=== PATIENT | female | born 1945 | race Caucasian/White ===

== ENCOUNTER 2016-11-06 10:10 | Emergency (ER) | payer MEDICARE ==
[~2016-11-06] VITALS: Ht 162.6 cm; Wt 91.6 kg
[~2016-11-06 10:10] MED LIST: AMLO5TAB PO; AMLODIPINE5 M1 PO; ASPIRIN81 M3 PO; ATORVASTATIN CA80 MG PO; BENADRYL 25MG C25 MG PO; CARVEDILOL 1212.5 MG PO; CARVEDILOL 25MG25 MG PO; CIPRO 500MG TA500 MG PO; COREG 12.5 MG12.5 MG PO; DILTIAZEM CD 2240 MG PO; DOXAZOSIN MESYLA1 MG NG; FERROUS SULFAT325 M2 PO; FLEXERIL10 MG PO; FUROSEMIDE 40MG40 M1 PO; GLYBURIDE 5MG TA5 MG; GLYBURIDE 5MG TA5 MG PO; HYOSCYAMINE0.125 M1 PO; IBU-8800 MG PO; LEVAQUIN500 MG PO; LEVEMIR100 U/M1 SC; LEVEMIR100 U/M2 SC; LISINOPRIL AND1 TA1 PO; LISINOPRIL/HCTZ1 TA3 PO; LORTAB 5/500 501 TAB PO; LOVASTATIN20 MG PO; MEDROL 4MG TABLE4 MG PO; METFORMIN500 MG PO; METOPROLOL TAR100 MG PO; NAPROSYN500 M1 PO; OMEPRAZOLE20 MG PO; PANCREAZE PO; PANCRELIPASE PO; PHENERGAN 25MG.25 M1 PO; POTASSIUM CHLO10 ME3 PO; POTASSIUM CHLO10 MEQ PO; PREDNISONE50 MG PO; PROVENTIL0.09 MG/A1 IH; SPIRONOLACTONE25 MG PO; TESSALON PERLE100 MG PO; ZANTAC 300300 MG PO; ZESTORETIC 12.51 TA1 PO; ZITHROMAX500 MG PO; ZOFRAN ODT4 MG PO
[2016-11-06] MEDS ORDERED: [UNRECOGNIZED DRUG - OTHER] IJ (10:22)
--- OUTSIDE RECORDS SUMMARY | 2016-11-06 10:32 | External Medical Summary Rpt ---
Author Author , DEAN MORAN Address Unknown Phone [email or web address] Care Team Providers Care Health Policy Nurse Name Role Phone [facility] Un[facility] Unavailable [place], [facility] Unavailable Unavailable [place] Unavailable Unavailable LAB, [facility] IRMA Reed, IRMA Reed Unavailable Unavailable Brianna SOLIS, IRMA, Unavailable Unavailable ADRIEL HERNANDEZ, Unavailable Unavailable [facility] Un[facility], [facility] Unavailable Unavailable HOSPITA, 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, unspecified E11.65 Type 2 10-26-2016 diabetes mellitus with hyperglycem ia E66.9 Obesity, 10-26-2016 unspecified E78.5 Hyperlipide 10-26-2016 kristine, unspecified H91.90 Unspecified 10-26-2016 hearing loss, unspecified ear I10 Essential 10-26-2016 (primary) hypertensio n I26.99 Other 10-26-2016 pulmonary embolism without acute cor pulmonale K21.9 Gastro-esop 10-26-2016 hageal reflux disease without esophagitis K59.00 Constipatio 10-26-2016 n, unspecified R91.8 Other 10-26-2016 nonspecific abnormal finding of lung field Z68.38 Body mass 10-26-2016 index (BMI) 38.0-38.9, adult Z71.3 Dietary 10-26-2016 counseling and surveillanc e 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 Z95.0 Presence of 10-26-2016 cardiac pacemaker 50767 DIAB W/O 04-08-2013 [facility] COMP TYPE I PHYSICIANS [JUV] NOT LA STATED UNCNTRL 27543 DIAB W/O 12-22-2012 [facility] COMP TYPE [facility] II/UNS NOT HOSPITA STATED UNCNTRL 3899 UNSPECIFIED 12-22-2012 [facility] 4019 UNSPECIFIED 12-22-2012 [facility] HYPERT[facility]O [facility] N 25155 UNSPECIFIED 12-22-2012 [facility] ABSCESS OF TOE 6827 CELLULITIS 12-22-2012 [facility] FOOT SERVICES EXCEPT TOES 2724 OTHER AND 09-14-2010 [facility] HYPERLIPIDE KRISTINE 7862 COUGH 06-03-2009 [facility] 84088 OTHER 05-22-2009 [facility] INTESTINE 73173 UNSPECIFIED 05-22-2009 [facility] CONSTIPAT[facility] INC N 62015 ABDOMINAL 05-22-2009 [place] [facility], [facility]PECIFIED [facility]ITE [facility] 51270 DIAB W/O 02-02-2009 [facility] COMP TYPE II/UNS TYPE UNCNTRL 56829 ASTHMA, 11-24-2008 [facility] , UNSPECIFIED STATUS 61947 PAIN IN 11-24-2008 [facility] JOINT, [facility] SHOULDER REGION 7852 UNDIAGNOSED 11-24-2008 [facility] MURMURS 5368 DYSPEPSIA&O 05-26-2008 [facility] SPEC [facility] DISORDERS FUNCTION STOMACH 2859 UNSPECIFIED 12-10-2007 [facility]EMIA [facility] E11.9 TYPE 2 DIABETES MELLITUS WITHOUT COMPLICATIO NS I21.3 ST ELEVATION (STEMI) MYOCARDIAL INFARCTION OF [facility] SITE I44.2 ATRIOVENTRI CULAR BLOCK, COMPLETE J18.1 LOBAR PNEUMONIA, UNSPECIFIED ORGANISM J18.9 PNEUMONIA, UNSPECIFIED ORGANISM J98.01 ACUTE BRONCHOSPAS M R07.9 CHEST PAIN, UNSPECIFIED R60.9 EDEMA, UNSPECIFIED Medications Na ND Rx Da Fi Fi Am Da Di Ph RX Ph St me C No te ll ll ou ys ag ar # ys at rm s nt no ma ic us Or Da si cy ia de te s n re d 51 03 07 6 30 30 RI 87 CO Ac 47 -2 -2 .0 TE 69 OP ti 70 8- 7- 00 48 ER ve 00 20 20 AI 10 11 11 D SHIMON 4 PH HN AR G MA CY 03 93 8 # 03 93 51 03 06 6 30 30 RI 87 CO Ac 47 -2 -3 .0 TE 69 OP ti 70 8- 0- 00 48 ER ve 00 20 20 AI 10 11 11 D SHIMON 4 PH HN AR G MA CY 03 93 8 # 03 93 ME 00 06 06 5 30 30 RI 88 CO Ac TO 37 -3 -3 .0 TE 94 OP ti PA 80 0- 0- 00 32 ER ve OL 04 20 20 AI OL 71 11 11 D SHIMON 0 PH HN TA AR G RT MA RA CY TE 03 10 93 0 8 MG # 03 TA 93 B LO 00 06 06 5 30 30 RI 88 CO Ac VA 37 -3 -3 .0 TE [address] 86 0- 0- 00 33 ER ve AT 52 20 20 AI IN 09 11 11 D SHIMON 1 PH HN 20 AR G MA MG CY TA 03 BL 93 ET 8 # 03 93 ME 65 03 06 6 60 30 RI 87 CO Ac TF 86 -2 -2 .0 TE 69 OP ti OR 20 8- 3- 00 28 ER ve [place] 00 20 20 AI N 80 11 11 D SHIM[facility] HC 1 PH HN L AR G 50 MA 0 CY MG 03 TA 93 BL 8 ET # 03 93 LI 00 05 06 4 30 30 RI 88 CO Ac SI 59 -2 -2 .0 TE 45 OP ti NO 10 4- 3- 00 52 ER ve PA 86 20 20 AI IL 20 11 11 D SHIMON -H [address] AR G Z MA 20 CY -2 5 03 MG 93 8 TA # B 03 93 PA 00 06 06 6. 30 RI 88 CO Ac OV 08 -0 -0 70 TE 61 OP ti EN 51 6- 6- 0 11 ER ve TI 13 20 20 AI L 20 11 11 D SHIMON HF 1 PH HN A AR G 90 MA CY MC G 03 IN 93 ZUÑIGA 8 LE # R 03 93 GL 00 10 06 5 60 30 RI 85 CO Ac YB 09 -0 -0 .0 TE 23 OP ti UR 39 2- 3- 00 91 ER ve ID 36 20 20 AI E 41 10 11 D SHIMON 5 0 PH HN MG AR G MA TA CY BL ET 03 93 8 # 03 93 ON 53 03 06 5 10 30 RI 87 CO Ac ET 88 -2 -0 0. TE 60 OP ti OU 50 2- 3- 00 49 ER ve CH 24 20 20 0 AI 51 11 11 D SHIMON UL 0 PH HN TR AR G A MA TE CY ST 03 ST 93 RI 8 PS # 03 93 LE 00 03 06 6 10 50 RI 87 CO Ac VE 16 -2 -0 .0 TE 69 OP ti [place] 93 8- 3- 00 26 ER ve R 68 20 20 AI 10 71 11 11 D SHIMON 0 2 PH HN UN AR G IT MA S/ CY ML 03 93 AL 8 # 03 93 LO 00 01 06 5 30 30 RI 87 CO Ac VA 37 -0 -0 .0 TE [address] 86 3- 3- 00 49 ER ve AT 52 20 20 AI IN 09 11 11 D SHIMON 1 PH HN 20 AR G MA MG CY TA 03 BL 93 ET 8 # 03 93 ME 00 01 06 5 30 30 RI 87 CO Ac TO 37 -0 -0 .0 TE 75 OP ti PA 80 3- 2- 00 48 ER ve OL 04 20 20 AI OL 71 11 11 D SHIMON 0 PH HN TA AR G RT MA RA CY TE 03 10 93 0 8 MG # 03 TA 93 B 51 03 05 6 30 30 RI 87 CO Ac 47 -2 -2 .0 TE 69 OP ti 70 8- 9- 00 48 ER ve 00 20 20 AI 10 11 11 D SHIMON 4 PH HN AR G MA CY 03 93 8 # 03 93 LI 00 05 05 4 30 30 RI 88 CO Ac SI 59 -2 -2 .0 TE 45 OP ti NO 10 4- 4- 00 52 ER ve PA 86 20 20 AI IL 20 11 11 D SHIMON -H [address] AR G Z MA 20 CY -2 5 03 MG 93 8 TA # B 03 93 NA 00 08 05 3 60 30 RI 84 CO Ac PA 09 -2 -0 .0 TE 71 OP ti OX 30 6- 4- 00 55 ER ve EN 14 20 20 AI 90 10 11 D SHIMON 50 1 PH HN 0 AR G MG MA CY TA BL 03 ET 93 8 # 03 93 ME 00 01 05 5 30 30 RI 87 CO Ac TO 37 -0 -0 .0 TE 75 OP ti PA 80 3- 4- 00 48 ER ve OL 04 20 20 AI OL 71 11 11 D SHIMON 0 PH HN TA AR G RT MA RA CY TE 03 10 93 0 8 MG # 03 TA 93 B LO 00 01 05 5 30 30 RI 87 CO Ac VA 37 -0 -0 .0 TE [address] 86 3- 4- 00 49 ER ve AT 52 20 20 AI IN 09 11 11 D SHIMON 1 PH HN 20 AR G MA MG CY TA 03 BL 93 ET 8 # 03 93 ME 65 03 04 6 60 30 RI 87 CO Ac TF 86 -2 -3 .0 TE 69 OP ti OR 20 8- 0- 00 28 ER ve [place] 00 20 20 AI N 80 11 11 D SHIMON HC 1 PH HN L AR G 50 MA 0 CY MG 03 TA 93 BL 8 ET # 03 93 51 03 04 6 30 30 RI 87 CO Ac 47 -2 -2 .0 TE 69 OP ti 70 8- 8- 00 48 ER ve 00 20 20 AI 10 11 11 D SHIMON 4 PH HN AR G MA CY 03 93 8 # 03 93 GL 00 10 04 5 60 30 RI 85 CO Ac YB 09 -0 -0 .0 TE 23 OP ti UR 39 2- 4- 00 91 ER ve ID 36 20 20 AI E 41 10 11 D SHIMON 5 0 PH HN MG AR G MA TA CY BL ET 03 93 8 # 03 93 LO 00 01 04 5 30 30 RI 87 CO Ac VA 37 -0 -0 .0 TE [address] 86 3- 1- 00 49 ER ve AT 52 20 20 AI IN 09 11 11 D SHIMON 1 PH HN 20 AR G MA MG CY TA 03 BL 93 ET 8 # 03 93 ME 00 01 04 5 30 30 RI 87 CO Ac TO 37 -0 -0 .0 TE 75 OP ti PA 80 3- 1- 00 48 ER ve OL 04 20 20 AI OL 71 11 11 D SHIMON 0 PH HN TA AR G RT MA RA CY TE 03 10 93 0 8 MG # 03 TA 93 B LE 00 03 03 6 10 50 RI 87 CO Ac VE 16 -2 -2 .0 TE 69 OP ti [place] 93 8- 8- 00 26 ER ve R 68 20 20 AI 10 71 11 11 D SHIMON 0 2 PH HN UN AR G IT MA S/ CY ML 03 93 AL 8 # 03 93 ME 65 03 03 6 60 30 RI 87 CO Ac TF 86 -2 -2 .0 TE 69 OP ti OR 20 8- 8- 00 28 ER ve [place] 00 20 20 AI N 80 11 11 D SHIMON HC 1 PH HN L AR G 50 MA 0 CY MG 03 TA 93 BL 8 ET # 03 93 DI 00 03 03 6 30 30 RI 87 CO Ac LT 09 -2 -2 .0 TE 69 OP ti IA 35 8- 8- 00 29 ER ve ZE 11 20 20 AI M 29 11 11 D SHIMON 24 8 PH HN HR AR G MA ER CY 12 03 0 93 MG 8 # CA 03 P 93 51 03 03 6 30 30 RI 87 CO Ac 47 -2 -2 .0 TE 69 OP ti 70 8- 8- 00 48 ER ve 00 20 20 AI 10 11 11 D SHIMON 4 PH HN AR G MA CY 03 93 8 # 03 93 PA 00 03 03 6. 30 RI 87 CO Ac OV 08 -2 -2 70 TE 60 OP ti EN 51 2- 2- 0 15 ER ve TI 13 20 20 AI L 20 11 11 D SHIMON HF 1 PH HN A AR G 90 MA CY MC G 03 IN 93 ZUÑIGA 8 LE # R 03 93 ON 53 03 03 5 10 30 RI 87 CO Ac ET 88 -2 -2 0. TE 60 OP ti OU 50 2- 2- 00 49 ER ve CH 24 20 20 0 AI 51 11 11 D SHIMON UL 0 PH HN TR AR G A MA TE CY ST 03 ST 93 RI 8 PS # 03 93 LE 00 02 02 00 15 75 RI 82 CO Ac VE 16 -1 -2 .0 TE 09 OP ti [place] 96 0- 6- 00 57 ER ve R 43 20 20 AI FL 91 10 10 D SHIMON EX 0 PH HN PE AR G N M 10 #3 0 93 UN 8 IT S/ ML LE 00 09 02 02 30 30 RI 81 CO Ac SC 07 -1 -2 .0 TE 22 OP ti OL 80 1- 6- 00 60 ER ve 23 20 20 AI 40 40 09 10 D SHIMON 5 PH HN MG AR G M CA #3 PS 93 UL 8 E JA 00 11 02 01 30 30 RI 80 CO Ac NU 00 -1 -2 .0 TE 93 OP ti 60 8- 6- 00 03 ER ve A 27 20 20 AI 10 73 09 10 D SHIMON 0 1 PH HN MG AR G M TA #3 BL 93 ET 8 CY 00 02 02 00 15 5 RI 82 SO Ac CL 37 -1 -2 .0 TE 09 KA ti OB 80 0- 6- 00 62 N ve EN 75 20 20 AI BA ZA 10 10 10 D BA PA 1 PH TU IN AR ND E M E 10 #3 O 93 MG 8 TA BL ET 00 02 02 00 12 2 RI 82 SO Ac 40 -1 -2 .0 TE 09 KA ti 60 0- 6- 00 63 N ve 35 20 20 AI BA 70 10 10 D BA 5 PH TU AR ND M E #3 O 93 8 ME 00 10 02 04 30 30 RI 80 CO Ac TO 37 -0 -1 .0 TE 32 OP ti PA 80 7- 1- 00 00 ER ve OL 04 20 20 AI OL 71 09 10 D SHIMON 0 PH HN TA AR G RT M RA #3 TE 93 8 10 0 MG TA B PA 00 02 02 00 6. 30 RI 82 CO Ac OV 08 -0 -1 70 TE 01 OP ti EN 51 4- 1- 0 07 ER ve TI 13 20 20 AI L 20 10 10 D SHIMON HF 1 PH HN A AR G 90 M #3 MC 93 G 8 IN ZUÑIGA LE R HY 00 08 02 05 30 30 RI 79 CO Ac ZA 00 -1 -1 .0 TE 50 OP ti AR 60 0- 1- 00 73 ER ve 74 20 20 AI 10 53 09 10 D SHIMON 0- 1 PH HN 12 AR G .5 M #3 TA 93 BL 8 ET GL 00 08 02 02 60 30 RI 79 CO Ac YB 09 -0 -1 .0 TE 41 OP ti UR 39 3- 1- 00 75 ER ve ID 36 20 20 AI E 41 09 10 D SHIMON 5 0 PH HN MG AR G M TA #3 BL 93 ET 8 PO 62 01 01 00 60 30 RI 81 CO Ac TA 03 -1 -2 .0 TE 69 OP ti SS 70 3- 8- 00 35 ER ve IU 56 20 20 AI M 00 10 10 D SHIMON CL 1 PH HN AR G ER M #3 10 93 8 ME Q CA PS UL E LE 00 09 01 01 30 30 RI 81 CO Ac SC 07 -1 -2 .0 TE 22 OP ti OL 80 1- 8- 00 60 ER ve 23 20 20 AI 40 40 09 10 D SHIMON 5 PH HN MG AR G M CA #3 PS 93 UL 8 E ME 00 10 01 03 30 30 RI 80 CO Ac TO 37 -0 -1 .0 TE 32 OP ti PA 80 7- 4- 00 00 ER ve OL 04 20 20 AI OL 71 09 10 D SHIMON 0 PH HN TA AR G RT M RA #3 TE 93 8 10 0 MG TA B FE 00 10 01 01 30 30 RI 80 CO Ac RR 67 -1 -1 .0 TE 37 OP ti OU 70 2- 4- 00 68 ER ve S 07 20 20 AI ADAMS 00 09 10 D SHIMON LF 1 PH HN AT AR G E M 32 #3 5 93 MG 8 TA BL ET HY 00 08 01 04 30 30 RI 79 CO Ac ZA 00 -1 -1 .0 TE 50 OP ti AR 60 0- 4- 00 73 ER ve 74 20 20 AI 10 53 09 10 D SHIMON 0- 1 PH HN 12 AR G .5 M #3 TA 93 BL 8 ET PA 00 01 12 01 6. 30 RI 76 CO Ac OV 08 -1 -1 70 TE 68 OP ti EN 51 4- 7- 0 05 ER ve TI 13 20 20 AI L 20 09 09 D SHIMON HF 1 PH HN A AR G 90 M #3 MC 93 G 8 IN ZUÑIGA LE R ME 00 12 12 00 60 30 RI 81 CO Ac TF 09 -0 -1 .0 TE 21 OP ti OR 31 8- 7- 00 77 ER ve [place] 04 20 20 AI N 80 09 09 D SHIMON HC 1 PH HN L AR G 50 M 0 #3 MG 93 8 TA BL ET LE 00 09 12 00 30 30 RI 81 CO Ac SC 07 -1 -1 .0 TE 22 OP ti OL 80 1- 7- 00 60 ER ve 23 20 20 AI 40 40 09 09 D SHIMON 5 PH HN MG AR G M CA #3 PS 93 UL 8 E HY 00 08 12 03 30 30 RI 79 CO Ac ZA 00 -1 -1 .0 TE 50 OP ti AR 60 0- 7- 00 73 ER ve 74 20 20 AI 10 53 09 09 D SHIMON 0- 1 PH HN 12 AR G .5 M #3 TA 93 BL 8 ET ME 00 10 12 02 30 30 RI 80 CO Ac TO 37 -0 -1 .0 TE 32 OP ti PA 80 7- 7- 00 00 ER ve OL 04 20 20 AI OL 71 09 09 D SHIMON 0 PH HN TA AR G RT M RA #3 TE 93 8 10 0 MG TA B JA 00 11 12 00 30 30 RI 80 CO Ac NU 00 -1 -0 .0 TE 93 OP ti 60 8- 3- 00 03 ER ve A 27 20 20 AI 10 73 09 09 D SHIMON 0 1 PH HN MG AR G M TA #3 BL 93 ET 8 LE 00 09 11 02 30 30 RI 79 CO Ac SC 07 -1 -1 .0 TE 94 OP ti OL 80 1- 9- 00 65 ER ve 23 20 20 AI 40 40 09 09 D SHIMON 5 PH HN MG AR G M CA #3 PS 93 UL 8 E PO 62 12 11 05 60 30 RI 76 CO Ac TA 03 -1 -1 .0 TE 25 OP ti SS 70 5- 9- 00 46 ER ve IU 56 20 20 AI M 00 08 09 D SHIMON CL 1 PH HN AR G ER M #3 10 93 8 ME Q CA PS UL E ME 00 10 11 01 30 30 RI 80 CO Ac TO 37 -0 -1 .0 TE 32 OP ti PA 80 7- 9- 00 00 ER ve OL 04 20 20 AI OL 71 09 09 D SHIMON 0 PH HN TA AR G RT M RA #3 TE 93 8 10 0 MG TA B ME 00 12 11 06 60 30 RI 76 CO Ac TF 09 -1 -1 .0 TE 25 OP ti OR 31 5- 9- 00 50 ER ve [place] 04 20 20 AI N 80 08 09 D SHIMON HC 1 PH HN L AR G 50 M 0 #3 MG 93 8 TA BL ET HY 00 08 11 02 30 30 RI 79 CO Ac ZA 00 -1 -1 .0 TE 50 OP ti AR 60 0- 9- 00 73 ER ve 74 20 20 AI 10 53 09 09 D SHIMON 0- 1 PH HN 12 AR G .5 M #3 TA 93 BL 8 ET LE 00 09 10 01 30 30 RI 79 CO Ac SC 07 -1 -2 .0 TE 94 OP ti OL 80 1- 2- 00 65 ER ve 23 20 20 AI 40 40 09 09 D SHIMON 5 PH HN MG AR G M CA #3 PS 93 UL 8 E ME 00 10 10 00 30 30 RI 80 CO Ac TO 37 -0 -2 .0 TE 32 OP ti PA 80 7- 2- 00 00 ER ve OL 04 20 20 AI OL 71 09 09 D SHIMON 0 PH HN TA AR G RT M RA #3 TE 93 8 10 0 MG TA B FE 00 10 10 00 30 30 RI 80 CO Ac RR 67 -1 -2 .0 TE 37 OP ti OU 70 2- 2- 00 68 ER ve S 07 20 20 AI ADAMS 00 09 09 D SHIMON LF 1 PH HN AT AR G E M 32 #3 5 93 MG 8 TA BL ET HY 00 08 10 01 30 30 RI 79 CO Ac ZA 00 -1 -2 .0 TE 50 OP ti AR 60 0- 2- 00 73 ER ve 74 20 20 AI 10 53 09 09 D SHIMON 0- 1 PH HN 12 AR G .5 M #3 TA 93 BL 8 ET GL 00 08 10 01 60 30 RI 79 CO Ac YB 09 -0 -2 .0 TE 41 OP ti UR 39 3- 2- 00 75 ER ve ID 36 20 20 AI E 41 09 09 D SHIMON 5 0 PH HN MG AR G M TA #3 BL 93 ET 8 ME 60 10 10 00 60 30 RI 80 CO Ac TF 50 -1 -2 .0 TE 37 OP ti OR 50 2- 2- 00 57 ER ve [place] 19 20 20 AI N 20 09 09 D SHIMON HC 0 PH HN L AR G 1, M 00 #3 0 93 MG 8 TA BL ET PO 62 12 09 04 60 30 RI 76 CO Ac TA 03 -1 -2 .0 TE 25 OP ti SS 70 5- 4- 00 46 ER ve IU 56 20 20 AI M 00 08 09 D SHIMON CL 1 PH HN AR G ER M #3 10 93 8 ME Q CA PS UL E LE 00 09 09 00 30 30 RI 79 CO Ac SC 07 -1 -2 .0 TE 94 OP ti OL 80 1- 4- 00 65 ER ve 23 20 20 AI 40 40 09 09 D SHIMON 5 PH HN MG AR G M CA #3 PS 93 UL 8 E ME 00 04 09 05 30 30 RI 77 CO Ac TO 37 -0 -2 .0 TE 92 OP ti PA 80 9- 4- 00 19 ER ve OL 04 20 20 AI OL 71 09 09 D SHIMON 0 PH HN TA AR G RT M RA #3 TE 93 8 10 0 MG TA B ME 00 12 09 05 60 30 RI 76 CO Ac TF 09 -1 -2 .0 TE 25 OP ti OR 31 5- 4- 00 50 ER ve [place] 04 20 20 AI N 80 08 09 D SHIMON HC 1 PH HN L AR G 50 M 0 #3 MG 93 8 TA BL ET HY 00 08 09 00 30 30 RI 79 CO Ac ZA 00 -1 -2 .0 TE 50 OP ti AR 60 0- 4- 00 73 ER ve 74 20 20 AI 10 53 09 09 D SHIMON 0- 1 PH HN 12 AR G .5 M #3 TA 93 BL 8 ET GL 00 08 08 00 60 30 RI 79 CO Ac YB 09 -0 -2 .0 TE 41 OP ti UR 39 3- 7- 00 75 ER ve ID 36 20 20 AI E 41 09 09 D SHIMON 5 0 PH HN MG AR G M TA #3 BL 93 ET 8 ME 00 04 08 04 30 30 RI 77 CO Ac TO 37 -0 -2 .0 TE 92 OP ti PA 80 9- 7- 00 19 ER ve OL 04 20 20 AI OL 71 09 09 D SHIMON 0 PH HN TA AR G RT M RA #3 TE 93 8 10 0 MG TA B LE 00 02 08 06 30 30 RI 77 CO Ac SC 07 -0 -2 .0 TE 12 OP ti OL 80 2- 7- 00 54 ER ve 23 20 20 AI 40 40 09 09 D SHIMON 5 PH HN MG AR G M CA #3 PS 93 UL 8 E TR 60 04 08 03 15 30 RI 77 CO Ac IA 50 -0 -1 .0 TE 87 OP ti MT 52 6- 3- 00 36 ER ve ER 65 20 20 AI EN 60 09 09 D SHIMON E- 1 PH HN HC AR G TZ M #3 37 93 .5 8 -2 5 MG TB NA 00 08 08 00 60 30 RI 79 CO Ac PA 09 -0 -1 .0 TE 41 OP ti OX 30 3- 3- 00 69 ER ve EN 14 20 20 AI 90 09 09 D SHIMON 50 1 PH HN 0 AR G MG M #3 TA 93 BL 8 ET ME 00 12 08 04 60 30 RI 76 CO Ac TF 09 -1 -1 .0 TE 25 OP ti OR 31 5- 3- 00 50 ER ve [place] 04 20 20 AI N 80 08 09 D SHIMON HC 1 PH HN L AR G 50 M 0 #3 MG 93 8 TA BL ET GL 00 04 08 04 30 30 RI 77 CO Ac YB 09 -0 -1 .0 TE 87 OP ti UR 39 6- 3- 00 12 ER ve ID 36 20 20 AI E 41 09 09 D SHIMON 5 0 PH HN MG AR G M TA #3 BL 93 ET 8 LE 00 02 07 05 30 30 RI 77 CO Ac SC 07 -0 -3 .0 TE 12 OP ti OL 80 2- 0- 00 54 ER ve 23 20 20 AI 40 40 09 09 D SHIMON 5 PH HN MG AR G M CA #3 PS 93 UL 8 E PO 62 12 07 03 60 30 RI 76 CO Ac TA 03 -1 -3 .0 TE 25 OP ti SS 70 5- 0- 00 46 ER ve IU 56 20 20 AI M 00 08 09 D SHIMON CL 1 PH HN AR G ER M #3 10 93 8 ME Q CA PS UL E FE 00 08 07 04 30 30 RI 74 CO Ac RR 67 -1 -3 .0 TE 78 OP ti OU 70 8- 0- 00 12 ER ve S 07 20 20 AI ADAMS 00 08 09 D SHIMON LF 1 PH HN AT AR G E M 32 #3 5 93 MG 8 TA BL ET ME 00 04 07 03 30 30 RI 77 CO Ac TO 37 -0 -3 .0 TE 92 OP ti PA 80 9- 0- 00 19 ER ve OL 04 20 20 AI OL 71 09 09 D SHIMON 0 PH HN TA AR G RT M RA #3 TE 93 8 10 0 MG TA B GL 00 04 07 03 30 30 RI 77 CO Ac YB 09 -0 -1 .0 TE 87 OP ti UR 39 6- 6- 00 12 ER ve ID 36 20 20 AI E 41 09 09 D SHIMON 5 0 PH HN MG AR G M TA #3 BL 93 ET 8 TR 60 04 07 02 15 30 RI 77 CO Ac IA 50 -0 -1 .0 TE 87 OP ti MT 52 6- 6- 00 36 ER ve ER 65 20 20 AI EN 60 09 09 D SHIMON E- 1 PH HN HC AR G TZ M #3 37 93 .5 8 -2 5 MG TB LE 00 02 07 04 30 30 RI 77 CO Ac SC 07 -0 -0 .0 TE 12 OP ti OL 80 2- 2- 00 54 ER ve 23 20 20 AI 40 40 09 09 D SHIMON 5 PH HN MG AR G M CA #3 PS 93 UL 8 E ME 00 04 06 02 30 30 RI 77 CO Ac TO 37 -0 -1 .0 TE 92 OP ti PA 80 9- 8- 00 19 ER ve OL 04 20 20 AI OL 71 09 09 D SHIMON 0 PH HN TA AR G RT M RA #3 TE 93 8 10 0 MG TA B TR 60 04 06 01 15 30 RI 77 CO Ac IA 50 -0 -1 .0 TE 87 OP ti MT 52 6- 8- 00 36 ER ve ER 65 20 20 AI EN 60 09 09 D SHIMON E- 1 PH HN HC AR G TZ M #3 37 93 .5 8 -2 5 MG TB GL 00 04 06 02 30 30 RI 77 CO Ac YB 09 -0 -1 .0 TE 87 OP ti UR 39 6- 8- 00 12 ER ve ID 36 20 20 AI E 41 09 09 D SHIMON 5 0 PH HN MG AR G M TA #3 BL 93 ET 8 00 12 06 03 60 30 RI 76 CO Ac 17 -1 -1 .0 TE 25 OP ti 24 5- 8- 00 50 ER ve 33 20 20 AI 16 08 09 D SHIMON 0 PH HN AR G M #3 93 8 LE 00 02 05 03 30 30 RI 77 CO Ac SC 07 -0 -2 .0 TE 12 OP ti OL 80 2- 1- 00 54 ER ve 23 20 20 AI 40 40 09 09 D SHIMON 5 PH HN MG AR G M CA #3 PS 93 UL 8 E ME 00 04 05 01 30 30 RI 77 CO Ac TO 37 -0 -2 .0 TE 92 OP ti PA 80 9- 1- 00 19 ER ve OL 04 20 20 AI OL 71 09 09 D SHIMON 0 PH HN TA AR G RT M RA #3 TE 93 8 10 0 MG TA B PO 62 12 05 02 60 30 RI 76 CO Ac TA 03 -1 -2 .0 TE 25 OP ti SS 70 5- 1- 00 46 ER ve IU 56 20 20 AI M 00 08 09 D SHIMON CL 1 PH HN AR G ER M #3 10 93 8 ME Q CA PS UL E GL 00 04 05 01 30 30 RI 77 CO Ac YB 09 -0 -2 .0 TE 87 OP ti UR 39 6- 1- 00 12 ER ve ID 36 20 20 AI E 41 09 09 D SHIMON 5 0 PH HN MG AR G M TA #3 BL 93 ET 8 FE 00 08 05 03 30 30 RI 74 CO Ac RR 67 -1 -0 .0 TE 78 OP ti OU 70 8- 7- 00 12 ER ve S 07 20 20 AI ADAMS 00 08 09 D SHIMON LF 1 PH HN AT AR G E M 32 #3 5 93 MG 8 TA BL ET TR 60 04 05 00 15 30 RI 77 CO Ac IA 50 -0 -0 .0 TE 87 OP ti MT 52 6- 7- 00 36 ER ve ER 65 20 20 AI EN 60 09 09 D SHIMON E- 1 PH HN HC AR G TZ M #3 37 93 .5 8 -2 5 MG TB LE 00 02 04 02 30 30 RI 77 CO Ac SC 07 -0 -2 .0 TE 12 OP ti OL 80 2- 3- 00 54 ER ve 23 20 20 AI 40 40 09 09 D SHIMON 5 PH HN MG AR G M CA #3 PS 93 UL 8 E GL 00 04 04 00 30 30 RI 77 CO Ac YB 09 -0 -2 .0 TE 87 OP ti UR 39 6- 3- 00 12 ER ve ID 36 20 20 AI E 41 09 09 D SHIMON 5 0 PH HN MG AR G M TA #3 BL 93 ET 8 NA 00 09 04 01 60 30 RI 75 CO Ac PA 09 -2 -2 .0 TE 18 OP ti OX 30 9- 3- 00 18 ER ve EN 14 20 20 AI 90 08 09 D SHIMON 50 1 PH HN 0 AR G MG M #3 TA 93 BL 8 ET 00 12 04 02 60 30 RI 76 CO Ac 17 -1 -2 .0 TE 25 OP ti 24 5- 3- 00 50 ER ve 33 20 20 AI 16 08 09 D SHIMON 0 PH HN AR G M #3 93 8 ME 00 04 04 00 30 30 RI 77 CO Ac TO 37 -0 -2 .0 TE 92 OP ti PA 80 9- 3- 00 19 ER ve OL 04 20 20 AI OL 71 09 09 D SHIMON 0 PH HN TA AR G RT M RA #3 TE 93 8 10 0 MG TA B TR 60 08 04 06 15 30 RI 74 CO Ac IA 50 -1 -0 .0 TE 58 OP ti MT 52 8- 9- 00 48 ER ve ER 65 20 20 AI EN 60 08 09 D SHIMON E- 1 PH HN HC AR G TZ M #3 37 93 .5 8 -2 5 MG TB GL 00 08 03 06 30 30 RI 74 CO Ac YB 09 -1 -2 .0 TE 78 OP ti UR 39 8- 6- 00 11 ER ve ID 36 20 20 AI E 41 08 09 D SHIMON 5 0 PH HN MG AR G M TA #3 BL 93 ET 8 LE 00 02 03 01 30 30 RI 77 CO Ac SC 07 -0 -2 .0 TE 12 OP ti OL 80 2- 6- 00 54 ER ve 23 20 20 AI 40 40 09 09 D SHIMON 5 PH HN MG AR G M CA #3 PS 93 UL 8 E ME 00 08 03 06 30 30 RI 74 CO Ac TO 37 -1 -2 .0 TE 78 OP ti PA 80 8- 6- 00 13 ER ve OL 04 20 20 AI OL 71 08 09 D SHIMON 0 PH HN TA AR G RT M RA #3 TE 93 8 10 0 MG TA B PO 62 12 03 01 60 30 RI 76 CO Ac TA 03 -1 -2 .0 TE 25 OP ti SS 70 5- 6- 00 46 ER ve IU 56 20 20 AI M 00 08 09 D SHIMON CL 1 PH HN AR G ER M #3 10 93 8 ME Q CA PS UL E FE 00 08 02 02 30 30 RI 74 CO Ac RR 67 -1 -2 .0 TE 78 OP ti OU 70 8- 6- 00 12 ER ve S 07 20 20 AI ADAMS 00 08 09 D SHIMON LF 1 PH HN AT AR G E M 32 #3 5 93 MG 8 TA BL ET TR 60 08 02 05 15 30 RI 74 CO Ac IA 50 -1 -2 .0 TE 58 OP ti MT 52 8- 6- 00 48 ER ve ER 65 20 20 AI EN 60 08 09 D SHIMON E- 1 PH HN HC AR G TZ M #3 37 93 .5 8 -2 5 MG TB ME 00 08 02 05 30 30 RI 74 CO Ac TO 37 -1 -2 .0 TE 78 OP ti PA 80 8- 6- 00 13 ER ve OL 04 20 20 AI OL 71 08 09 D SHIMON 0 PH HN TA AR G RT M RA #3 TE 93 8 10 0 MG TA B LE 00 02 02 00 30 30 RI 77 CO Ac SC 07 -0 -2 .0 TE 12 OP ti OL 80 2- 6- 00 54 ER ve 23 20 20 AI 40 40 09 09 D SHIMON 5 PH HN MG AR G M CA #3 PS 93 UL 8 E GL 00 08 02 05 30 30 RI 74 CO Ac YB 09 -1 -1 .0 TE 78 OP ti UR 39 8- 2- 00 11 ER ve ID 36 20 20 AI E 41 08 09 D SHIMON 5 0 PH HN MG AR G M TA #3 BL 93 ET 8 00 12 02 01 60 30 RI 76 CO Ac 17 -1 -1 .0 TE 25 OP ti 24 5- 2- 00 50 ER ve 33 20 20 AI 16 08 09 D SHIMON 0 PH HN AR G M #3 93 8 CH 00 02 02 00 47 30 RI 76 CO Ac LO 11 -0 -1 3. TE 91 OP ti RH 62 2- 2- 00 00 ER ve EX 00 20 20 0 AI ID 11 09 09 D SHIMON IN 6 PH HN E AR G 0. M 12 #3 % 93 RI 8 NS E TR 60 08 01 04 15 30 RI 74 CO Ac IA 50 -1 -3 .0 TE 58 OP ti MT 52 8- 0- 00 48 ER ve ER 65 20 20 AI EN 60 08 09 D SHIMON E- 1 PH HN HC AR G TZ M #3 37 93 .5 8 -2 5 MG TB PA 00 01 01 00 6. 30 RI 76 CO Ac OV 08 -1 -3 70 TE 68 OP ti EN 51 4- 0- 0 05 ER ve TI 13 20 20 AI L 20 09 09 D SHIMON HF 1 PH HN A AR G 90 M #3 MC 93 G 8 IN ZUÑIGA LE R LE 00 01 01 00 30 30 RI 76 ZUÑIGA Ac SC 07 -1 -3 .0 TE 68 MM ti OL 80 4- 0- 00 04 ON ve 23 20 20 AI D 40 40 09 09 D KA 5 PH TH MG AR AR M IN CA #3 E PS 93 Y UL 8 E ME 00 08 01 04 30 30 RI 74 CO Ac TO 37 -1 -1 .0 TE 78 OP ti PA 80 8- 5- 00 13 ER ve OL 04 20 20 AI OL 71 08 09 D SHIMON 0 PH HN TA AR G RT M RA #3 TE 93 8 10 0 MG TA B GL 00 08 01 04 30 30 RI 74 CO Ac YB 09 -1 -1 .0 TE 78 OP ti UR 39 8- 5- 00 11 ER ve ID 36 20 20 AI E 41 08 09 D SHIMON 5 0 PH HN MG AR G M TA #3 BL 93 ET 8 00 12 01 00 60 30 RI 76 CO Ac 17 -1 -0 .0 TE 25 OP ti 24 5- 1- 00 50 ER ve 33 20 20 AI 16 08 09 D SHIMON 0 PH HN AR G M #3 93 8 PO 62 12 01 00 60 30 RI 76 CO Ac TA 03 -1 -0 .0 TE 25 OP ti SS 70 5- 1- 00 46 ER ve IU 56 20 20 AI M 00 08 09 D SHIMON CL 1 PH HN AR G ER M #3 10 93 8 ME Q CA PS UL E TR 60 08 12 03 15 30 RI 74 CO Ac IA 50 -1 -1 .0 TE 58 OP ti MT 52 8- 8- 00 48 ER ve ER 65 20 20 AI EN 60 08 08 D SHIMON E- 1 PH HN HC AR G TZ M #3 37 93 .5 8 -2 5 MG TB GL 00 08 12 03 30 30 RI 74 CO Ac YB 09 -1 -1 .0 TE 78 OP ti UR 39 8- 8- 00 11 ER ve ID 36 20 20 AI E 41 08 08 D SHIMON 5 0 PH HN MG AR G M TA #3 BL 93 ET 8 ME 00 08 12 03 30 30 RI 74 CO Ac TO 37 -1 -1 .0 TE 78 OP ti PA 80 8- 8- 00 13 ER ve OL 04 20 20 AI OL 71 08 08 D SHIMON 0 PH HN TA AR G RT M RA #3 TE 93 8 10 0 MG TA B FE 00 08 12 01 30 30 RI 74 CO Ac RR 67 -1 -1 .0 TE 78 OP ti OU 70 8- 8- 00 12 ER ve S 07 20 20 AI ADAMS 00 08 08 D SHIMON LF 1 PH HN AT AR G E M 32 #3 5 93 MG 8 TA BL ET LE 00 12 12 04 30 30 RI 71 ZUÑIGA Ac SC 07 -2 -1 .0 TE 15 MM ti OL 80 0- 8- 00 62 ON ve 23 20 20 AI D 40 40 07 08 D KA 5 PH TH MG AR AR M IN CA #3 E PS 93 Y UL 8 E LE 00 12 11 03 30 30 RI 71 ZUÑIGA Ac SC 07 -2 -2 .0 TE 15 MM ti OL 80 0- 0- 00 62 ON ve 23 20 20 AI D 40 40 07 08 D KA 5 PH TH MG AR AR M IN CA #3 E PS 93 Y UL 8 E 58 12 11 05 60 30 RI 71 CO Ac 17 -1 -2 .0 TE 11 OP ti 70 8- 0- 00 11 ER ve 00 20 20 AI 10 07 08 D SHIMON 4 PH HN AR G M #3 93 8 GL 00 08 11 02 30 30 RI 74 CO Ac YB 09 -1 -2 .0 TE 78 OP ti UR 39 8- 0- 00 11 ER ve ID 36 20 20 AI E 41 08 08 D SHIMON 5 0 PH HN MG AR G M TA #3 BL 93 ET 8 TR 60 08 11 02 15 30 RI 74 CO Ac IA 50 -1 -2 .0 TE 58 OP ti MT 52 8- 0- 00 48 ER ve ER 65 20 20 AI EN 60 08 08 D SHIMON E- 1 PH HN HC AR G TZ M #3 37 93 .5 8 -2 5 MG TB ME 00 08 11 02 30 30 RI 74 CO Ac TO 37 -1 -2 .0 TE 78 OP ti PA 80 8- 0- 00 13 ER ve OL 04 20 20 AI OL 71 08 08 D SHIMON 0 PH HN TA AR G RT M RA #3 TE 93 8 10 0 MG TA B ME 00 08 10 01 30 30 RI 74 CO Ac TO 37 -1 -2 .0 TE 78 OP ti PA 80 8- 3- 00 13 ER ve OL 04 20 20 AI OL 71 08 08 D SHIMON 0 PH HN TA AR G RT M RA #3 TE 93 8 10 0 MG TA B GL 00 08 10 01 30 30 RI 74 CO Ac YB 09 -1 -2 .0 TE 78 OP ti UR 39 8- 3- 00 11 ER ve ID 36 20 20 AI E 41 08 08 D SHIMON 5 0 PH HN MG AR G M TA #3 BL 93 ET 8 00 12 10 05 60 30 RI 71 CO Ac 17 -1 -2 .0 TE 11 OP ti 24 8- 3- 00 15 ER ve 33 20 20 AI 16 07 08 D SHIMON 0 PH HN AR G M #3 93 8 TR 60 08 10 01 15 30 RI 74 CO Ac IA 50 -1 -2 .0 TE 58 OP ti MT 52 8- 3- 00 48 ER ve ER 65 20 20 AI EN 60 08 08 D SHIMON E- 1 PH HN HC AR G TZ M #3 37 93 .5 8 -2 5 MG TB LE 00 12 10 02 30 30 RI 71 No Ac SC 07 -2 -2 .0 TE 15 t ti OL 80 0- 3- 00 62 Av ve 23 20 20 AI ai 40 40 07 08 D la 5 PH bl MG AR e M CA #3 PS 93 UL 8 E FE 00 08 10 00 30 30 RI 74 CO Ac RR 67 -1 -0 .0 TE 78 OP ti OU 70 8- 9- 00 12 ER ve S 07 20 20 AI ADAMS 00 08 08 D SHIMON LF 1 PH HN AT AR G E M 32 #3 5 93 MG 8 TA BL ET NA 00 09 10 00 60 30 RI 75 CO Ac PA 09 -2 -0 .0 TE 18 OP ti OX 30 9- 9- 00 18 ER ve EN 14 20 20 AI 90 08 08 D SHIMON 50 1 PH HN 0 AR G MG M #3 TA 93 BL 8 ET 58 12 09 04 60 30 RI 71 CO Ac 17 -1 -2 .0 TE 11 OP ti 70 8- 6- 00 11 ER ve 00 20 20 AI 10 07 08 D SHIMON 4 PH HN AR G M #3 93 8 ME 00 08 09 00 30 30 RI 74 CO Ac TO 37 -1 -2 .0 TE 78 OP ti PA 80 8- 6- 00 13 ER ve OL 04 20 20 AI OL 71 08 08 D SHIMON 0 PH HN TA AR G RT M RA #3 TE 93 8 10 0 MG TA B TR 60 08 09 00 15 30 RI 74 CO Ac IA 50 -1 -2 .0 TE 58 OP ti MT 52 8- 6- 00 48 ER ve ER 65 20 20 AI EN 60 08 08 D SHIMON E- 1 PH HN HC AR G TZ M #3 37 93 .5 8 -2 5 MG TB LE 00 12 09 01 30 30 RI 71 No Ac SC 07 -2 -2 .0 TE 15 t ti OL 80 0- 6- 00 62 Av ve 23 20 20 AI ai 40 40 07 08 D la 5 PH bl MG AR e M CA #3 PS 93 UL 8 E 00 12 09 04 60 30 RI 71 CO Ac 17 -1 -2 .0 TE 11 OP ti 24 8- 6- 00 15 ER ve 33 20 20 AI 16 07 08 D SHIMON 0 PH HN AR G M #3 93 8 GL 00 08 09 00 30 30 RI 74 CO Ac YB 09 -1 -2 .0 TE 78 OP ti UR 39 8- 6- 00 11 ER ve ID 36 20 20 AI E 41 08 08 D SHIMON 5 0 PH HN MG AR G M TA #3 BL 93 ET 8 ME 00 08 08 00 30 30 RI 74 CO Ac TO 37 -1 -2 .0 TE 58 OP ti PA 80 8- 8- 00 43 ER ve OL 04 20 20 AI OL 71 08 08 D SHIMON 0 PH HN TA AR G RT M RA #3 TE 93 8 10 0 MG TA B GL 00 08 08 00 30 30 RI 74 CO Ac YB 09 -1 -2 .0 TE 58 OP ti UR 39 8- 8- 00 38 ER ve ID 36 20 20 AI E 41 08 08 D SHIMON 5 0 PH HN MG AR G M TA #3 BL 93 ET 8 LE 00 12 08 00 30 30 RI 71 No Ac SC 07 -2 -2 .0 TE 15 t ti OL 80 0- 8- 00 62 Av ve 23 20 20 AI ai 40 40 07 08 D la 5 PH bl MG AR e M CA #3 PS 93 UL 8 E FE 00 07 08 01 30 30 RI 74 CO Ac RR 67 -1 -2 .0 TE 11 OP ti OU 70 1- 8- 00 09 ER ve S 07 20 20 AI ADAMS 00 08 08 D SHIMON LF 1 PH HN AT AR G E M 32 #3 5 93 MG 8 TA BL ET TR 60 12 08 06 15 30 RI 71 CO Ac IA 50 -1 -2 .0 TE 11 OP ti MT 52 8- 8- 00 08 ER ve ER 65 20 20 AI EN 60 07 08 D SHIMON E- 1 PH HN HC AR G TZ M #3 37 93 .5 8 -2 5 MG TB PA 00 07 08 02 6. 21 RI 69 CO Ac OV 08 3 -1 70 TE 04 OP ti EN 51 0- 4- 0 06 ER ve TI 13 20 20 AI L 20 07 08 D SHIMON HF 1 PH HN A AR G 90 M #3 MC 93 G 8 IN ZUÑIG[place] LE R LE 00 07 08 00 30 30 RI 74 CO Ac SC 07 -1 -0 .0 TE 18 OP ti OL 80 7- 1- 00 34 ER ve 23 20 20 AI 40 40 08 08 D SHIMON 5 PH HN MG AR G M CA #3 PS 93 UL 8 E 00 12 08 03 60 30 RI 71 CO Ac 17 -1 -0 .0 TE 11 OP ti 24 8- 1- 00 15 ER ve 33 20 20 AI 16 07 08 D SHIMON 0 PH HN AR G M #3 93 8 GL 00 07 08 00 30 30 RI 74 CO Ac YB 09 -1 -0 .0 TE 18 OP ti UR 39 7- 1- 00 33 ER ve ID 36 20 20 AI E 41 08 08 D SHIMON 5 0 PH HN MG AR G M TA #3 BL 93 ET 8 ME 00 07 08 00 30 30 RI 74 CO Ac TO 37 -1 -0 .0 TE 18 OP ti PA 80 7- 1- 00 32 ER ve OL 04 20 20 AI OL 71 08 08 D SHIMON 0 PH HN TA AR G RT M RA #3 TE 93 8 10 0 MG TA B PA 00 07 07 01 6. 21 RI 69 CO Ac OV 3 - 70 TE 04 OP ti EN 51 0- 7- 0 06 ER ve TI 13 20 20 AI L 20 07 08 D SHIMON HF 1 PH HN A AR G 90 M #3 MC 93 G 8 IN ZUÑ[place] LE R TR 60 12 07 05 15 30 RI 71 CO Ac IA 50 -1 -1 .0 TE 11 OP ti MT 52 8- 7- 00 08 ER ve ER 65 20 20 AI EN 60 07 08 D SHIMON E- 1 PH HN HC AR G TZ M #3 37 93 .5 8 -2 5 MG TB FE 00 07 07 00 30 30 RI 74 CO Ac RR 67 -1 -1 .0 TE 11 OP ti OU 70 1- 7- 00 09 ER ve S 07 20 20 AI ADAMS 00 08 08 D SHIMON LF 1 PH HN AT AR G E M 32 #3 5 93 MG 8 TA BL ET FL 00 07 07 00 16 25 RI 74 CO Ac UT 05 -0 -1 .0 TE 02 OP ti IC 43 5- 7- 00 07 ER ve 27 20 20 AI ON 09 08 08 D SHIMON E 9 PH HN PA AR G OP M #3 50 93 8 MC G SP RA Y 58 12 07 03 60 30 RI 71 CO Ac 17 -1 -1 .0 TE 11 OP ti 70 8- 7- 00 11 ER ve 00 20 20 AI 10 07 08 D SHIMON 4 PH HN AR G M #3 93 8 GL 00 12 07 06 30 30 RI 71 CO Ac YB 09 -1 -0 .0 TE 11 OP ti UR 39 8- 3- 00 14 ER ve ID 36 20 20 AI E 41 07 08 D SHIMON 5 0 PH HN MG AR G M TA #3 BL 93 ET 8 ME 00 12 07 06 30 30 RI 71 CO Ac TO 37 -1 -0 .0 TE 11 OP ti PA 80 8- 3- 00 10 ER ve OL 04 20 20 AI OL 71 07 08 D SHIMON 0 PH HN TA AR G RT M RA #3 TE 93 8 10 0 MG TA B LE 00 12 07 05 30 30 RI 71 CO Ac SC 07 -1 -0 .0 TE 60 OP ti OL 80 8- 3- 00 85 ER ve 17 20 20 AI 20 60 07 08 D SHIMON 5 PH HN MG AR G M CA #3 PS 93 UL 8 E TR 60 12 06 04 15 30 RI 71 CO Ac IA 50 -1 -0 .0 TE 11 OP ti MT 52 8- 5- 00 08 ER ve ER 65 20 20 AI EN 60 07 08 D SHIMON E- 1 PH HN HC AR G TZ M #3 37 93 .5 8 -2 5 MG TB FE 00 05 06 00 30 30 RI 73 CO Ac RR 67 -2 -0 .0 TE 48 OP ti OU 70 7- 5- 00 87 ER ve S 07 20 20 AI ADAMS 00 08 08 D SHIMON LF 1 PH HN AT AR G E M 32 #3 5 93 MG 8 TA BL ET 00 12 06 02 60 30 RI 71 No Ac 17 -1 -0 .0 TE 11 t ti 24 8- 5- 00 15 Av ve 33 20 20 AI ai 16 07 08 D la 0 PH bl AR e M #3 93 8 GL 00 12 06 05 30 30 RI 71 No Ac YB 09 -1 -0 .0 TE 11 t ti UR 39 8- 5- 00 14 Av ve ID 36 20 20 AI ai E 41 07 08 D la 5 0 PH bl MG AR e M TA #3 BL 93 ET 8 ME 00 12 05 05 30 30 RI 71 No Ac TO 37 -1 -2 .0 TE 11 t ti PA 80 8- 2- 00 10 Av ve OL 04 20 20 AI ai OL 71 07 08 D la 0 PH bl TA AR e RT M RA #3 TE 93 8 10 0 MG TA B LE 00 12 05 04 30 30 RI 71 No Ac SC 07 -1 -2 .0 TE 60 t ti OL 80 8- 2- 00 85 Av ve 17 20 20 AI ai 20 60 07 08 D la 5 PH bl MG AR e M CA #3 PS 93 UL 8 E TR 60 12 05 03 15 30 RI 71 No Ac IA 50 -1 -0 .0 TE 11 t ti MT 52 8- 8- 00 08 Av ve ER 65 20 20 AI ai EN 60 07 08 D la E- 1 PH bl HC AR e TZ M #3 37 93 .5 8 -2 5 MG TB 58 12 05 02 60 30 RI 71 No Ac 17 -1 -0 .0 TE 11 t ti 70 8- 8- 00 11 Av ve 00 20 20 AI ai 10 07 08 D la 4 PH bl AR e M #3 93 8 LE 00 12 04 03 30 30 RI 71 No Ac SC 07 -1 -2 .0 TE 60 t ti OL 80 8- 4- 00 85 Av ve 17 20 20 AI ai 20 60 07 08 D la 5 PH bl MG AR e M CA #3 PS 93 UL 8 E ME 00 12 04 04 30 30 RI 71 No Ac TO 37 -1 -2 .0 TE 11 t ti PA 80 8- 4- 00 10 Av ve OL 04 20 20 AI ai OL 71 07 08 D la 0 PH bl TA AR e RT M RA #3 TE 93 8 10 0 MG TA B GL 00 12 04 04 30 30 RI 71 No Ac YB 09 -1 -2 .0 TE 11 t ti UR 39 8- 4- 00 14 Av ve ID 36 20 20 AI ai E 41 07 08 D la 5 0 PH bl MG AR e M TA #3 BL 93 ET 8 GL 00 12 04 03 30 30 RI 71 No Ac YB 09 -1 -1 .0 TE 11 t ti UR 39 8- 7- 00 14 Av ve ID 36 20 20 AI ai E 41 07 08 D la 5 0 PH bl MG AR e M TA #3 BL 93 ET 8 ME 00 12 04 03 30 30 RI 71 No Ac TO 37 -1 -1 .0 TE 11 t ti PA 80 8- 7- 00 10 Av ve OL 04 20 20 AI ai OL 71 07 08 D la 0 PH bl TA AR e RT M RA #3 TE 93 8 10 0 MG TA B LE 00 12 04 02 30 30 RI 71 No Ac SC 07 -1 -1 .0 TE 60 t ti OL 80 8- 7- 00 85 Av ve 17 20 20 AI ai 20 60 07 08 D la 5 PH bl MG AR e M CA #3 PS 93 UL 8 E 00 12 04 01 60 30 RI 71 No Ac 17 -1 -1 .0 TE 11 t ti 24 8- 7- 00 15 Av ve 33 20 20 AI ai 16 07 08 D la 0 PH bl AR e M #3 93 8 FE 00 07 04 05 30 30 RI 68 No Ac RR 67 -1 -1 .0 TE 90 t ti OU 70 9- 0- 00 34 Av ve S 07 20 20 AI ai ADAMS 00 07 08 D la LF 1 PH bl AT AR e E M 32 #3 5 93 MG 8 TA BL ET TR 60 12 04 02 15 30 RI 71 No Ac IA 50 -1 -1 .0 TE 11 t ti MT 52 8- 0- 00 08 Av ve ER 65 20 20 AI ai EN 60 07 08 D la E- 1 PH bl HC AR e TZ M #3 37 93 .5 8 -2 5 MG TB GL 00 12 03 02 30 30 RI 71 No Ac YB 09 -1 -2 .0 TE 11 t ti UR 39 8- 6- 00 14 Av ve ID 36 20 20 AI ai E 41 07 08 D la 5 0 PH bl MG AR e M TA #3 BL 93 ET 8 58 12 03 01 60 30 RI 71 No Ac 17 -1 -2 .0 TE 11 t ti 70 8- 6- 00 11 Av ve 00 20 20 AI ai 10 07 08 D la 4 PH bl AR e M #3 93 8 FE 00 07 03 04 30 30 RI 68 No Ac RR 67 -1 -2 .0 TE 90 t ti OU 70 9- 6- 00 34 Av ve S 07 20 20 AI ai ADAMS 00 07 08 D la LF 1 PH bl AT AR e E M 32 #3 5 93 MG 8 TA BL ET TR 60 12 03 01 15 30 RI 71 No Ac IA 50 -1 -2 .0 TE 11 t ti MT 52 8- 6- 00 08 Av ve ER 65 20 20 AI ai EN 60 07 08 D la E- 1 PH bl HC AR e TZ M #3 37 93 .5 8 -2 5 MG TB ME 00 12 03 02 30 30 RI 71 No Ac TO 37 -1 -2 .0 TE 11 t ti PA 80 8- 6- 00 10 Av ve OL 04 20 20 AI ai OL 71 07 08 D la 0 PH bl TA AR e RT M RA #3 TE 93 8 10 0 MG TA B LE 00 12 03 01 30 30 RI 71 No Ac SC 07 -1 -2 .0 TE 60 t ti OL 80 8- 6- 00 85 Av ve 17 20 20 AI ai 20 60 07 08 D la 5 PH bl MG AR e M CA #3 PS 93 UL 8 E GL 00 12 03 01 30 30 RI 71 No Ac YB 09 -1 -2 .0 TE 11 t ti UR 39 8- 5- 00 14 Av ve ID 36 20 20 AI ai E 41 07 08 D la 5 0 PH bl MG AR e M TA #3 BL 93 ET 8 ME 00 12 03 01 30 30 RI 71 No Ac TO 37 -1 -2 .0 TE 11 t ti PA 80 8- 5- 00 10 Av ve OL 04 20 20 AI ai OL 71 07 08 D la 0 PH bl TA AR e RT M RA #3 TE 93 8 10 0 MG TA B LE 00 12 03 00 30 30 RI 71 No Ac SC 07 -1 -2 .0 TE 60 t ti OL 80 8- 5- 00 85 Av ve 17 20 20 AI ai 20 60 07 08 D la 5 PH bl MG AR e M CA #3 PS 93 UL 8 E FE 00 07 03 03 30 30 RI 68 No Ac RR 67 -1 -2 .0 TE 90 t ti OU 70 9- 4- 00 34 Av ve S 07 20 20 AI ai ADAMS 00 07 08 D la LF 1 PH bl AT AR e E M 32 #3 5 93 MG 8 TA BL ET Results Labs Lab Lab Date Result Refere Interp Status Commen Order Detail nces retati t Range on Rheumatoid fact SerPl-aCnc (10-27-2016 14:39) Rheumat < 10 <14 complet oid 017 IU/mL ed fact 14:39 SerPl-a Cnc CRP SerPl-mCnc (10-27-2016 14:39) CRP 1.3 0-0.9 complet SerPl-m 017 mg/dL ed Cnc 14:39 ESR Bld Qn (10-27-2016 14:39) ESR Bld UNDER 0-20 complet Qn 017 INSUFFI ed 14:39 CIENT VOLUME, SPECIME N WAS UNDER FILLED AND TESTING WAS UNABLE TO BE PERFORM ED, RECOLLE CT REQUEST ED. L mm/hr Bacteria Ur Cult (10-17-2016 18:29) Bacteri [id number] complet a XXX 017 9 ed Anaerob 18:29 normal e+Aerob omaira e Cult (findin g) SCT UMXF Mixed urogeni apurva or skin omaira present . Suggest appropr iate recolle ction with timely deliver y to the laborat ory, if clinica lly indicat ed. L Bacteri [id number] complet a XXX 017 10,000- ed Anaerob 18:29 100,000 e+Aerob CFU/ml e Cult L CC XXX NOTAP complet VC-aCnc 017 NOT ed 18:29 APPLICA BLE L CRP SerPl-mCnc (10-17-2016 18:29) CRP 2 0.6 0-0.9 complet SerPl-m 017 mg/dL ed Cnc 18:29 ESR Bld Qn (10-17-2016 18:25) ESR Bld 23 0-20 complet Qn 017 mm/hr ed 18:25 Bacteria XXX Anaerobe+Aerobe Cult (10-17-2016 14:49) Bacteri [id number] complet a XXX 017 06 No ed Anaerob 14:49 growth e+Aerob (qualif e Cult ier value) SCT NGB6 NO GROWTH DAY 5. L TSH SerPl DL<=0.005 mIU/L-aCnc (10-17-2016 14:49) TSH 3.40 0.4-4.2 complet SerPl 017 uIU/mL ed DL<=0.0 14:49 05 mIU/L-a [facility] Procedures Procedure DOS Code Location Performer Comment BASIC 78955 COMBINED COMBINED METABOLIC 3 PHYSICIAN PHYSICIAN PANEL S LA S LA CALCIUM TOTAL CUL BACT 73208 [facility] XCPT 3 N N URINE COMMUNITY [facility]ITY BLOOD/STO HOSPITA HOSPITA OL AEROBIC ISOL CUL BACT 05740 [facility] AEROBIC 3 N N ADDL COMMUNITY COMMUNITY METHS HOSPITA HOSPITA DEFINITIV E EA ISOL RADIOLOGI 15455 [facility] C 3 N N EXAMINATI COMMUNITY [facility] ON FOOT 2 HOSPITA HOSPITA VIEWS SUSCEPTIB 28382 [facility] LTY STDY 3 N N ANTIMICRB [facility] IAL HOSP[facility] HOSPITA MICRO/AGA R DILUTJ INCISION 74162 [facility] & 3 N N DRAINAGE [facility] ABSCESS HOSPITA HOSPITA SIMPLE/SI NGLE GLUC BLD 25935 [facility] GLUC MNTR 3 N N DEV [facility] CLEARED HOSPITA HOSPITA FDA SPEC HOME USE INJECTION J2001 [facility] 3 N N LIDOCAINE [facility] HCL HOSPITA HOSPITA INTRAVENO US INFUS 10 MG COMPREHEN 86181 COMBINED COMBINED SIVE 3 PHYSICIAN PHYSICIAN METABOLIC S LA S LA PANEL HEMOGLOBI 28807 FAMILY FAMILY N 1 CARE CARE GLYCOSYLA ASSOCIATE ASSOCIATE ASHA A1C S S HEMOGLOBI 68559 FAMILY FAMILY N 1 CARE CARE GLYCOSYLA ASSOCIATE ASSOCIATE ASHA A1C S S COMPREHEN 81840 COMBINED COMBINED SIVE 1 PHYSICIAN PHYSICIAN METABOLIC S LA S LA PANEL CULTURE 86185 COMBINED COMBINED BACTERIAL 1 PHYSICIAN PHYSICIAN S LA S LA QUANTTATI VE COLONY COUNT URINE GLUCOSE 63856 Brianna LUNA POST 0 CARE G GLUCOSE ASSOCIATE DOSE S BLOOD 96412 Brianna LUNA COUNT 0 CARE G COMPLETE ASSOCIATE AUTO&AUTO S DIFRNTL WBC BLOOD 35794 [facility] S[facility]OVAL COUNT 0 [facility] COMPLETE INC INC AUTO&AUTO DIFRNTL WBC URNLS DIP 01478 [facility] ANDRESON 0 [facility] STICK/TAB INC INC LET REAGENT AUTO MICROSCOP Y RADEX ABD 97543 MASOOD DILLON COMPL 0 MEDICAL ADRIEL AQT ABD IMAGING W/S/E/D ASSOCIATE VIEWS 1 S VIEW CH COMPREHEN 60615 [facility] S[facility]OVAL SIVE 0 [facility] [place] [address] [facility] SANDOVAL AMYLASE 0 [place] [address] [facility] SANDOVAL LIPASE 0 [facility] INC INC NEEDLE A4215 [facility] 0 [facility]ARMACY PHARMACY ANY SIZE 3938 3938 EACH COMPREHEN 32009 COMBINED COMBINED SIVE 0 PHYSICIAN PHYSICIAN METABOLIC S LAB S LAB PANEL HEMOGLOBI 14568 FAMILY OLMEDOEET, N 0 CARE Gretta PATEL GLYCOSYLA ASSOCI[place] [address] COMBINED COMBINED THYROID 0 PHYSICIAN PHYSICIAN STIMULATI S LAB S LAB NG HORMONE TSH GLUCOSE 70255 FAMILY LAZOT, POST 0 CARE Gretta PATEL GLUCOSE ASSOCIATE DOSE S ALBUMIN 63999 FAMILY CELIS, URINE 0 CARE Gretta PATEL MICROALBU ASSOCIATE MIN S SEMIQUANT ITATIVE CREATININ 03757 FAMILY CELIS, E OTHER 0 CARE Gretta PATEL SOURCE ASSOCIATE S BLOOD 68023 Brianna LUNA COUNT 9 CARE Erlinda COMPLETE ASSOCIATE AUTO&AUTO S DIFRNTL WBC HEMOGLOBI 56985 Brianna LUNA N 9 CARE G GLYCOSYLA ASSOCIATE ASHA A1C S COMPREHEN 33681 COMBINED COMBINED SIVE 9 PHYSICIAN PHYSICIAN METABOLIC S LAB S LAB PANEL NONINVASI 08998 Brianna LUNA VE 9 CARE G EAR/PULSE ASSOCIATE OXIMETRY S SINGLE DETER COLLECTIO 89947 Brianna LUNA N VENOUS 9 CARE G BLOOD ASSOCIATE VENIPUNCT S URE HEMOGLOBI 30401 COMBINED COMBINED N 9 PHYSICIAN PHYSICIAN GLYCOSYLA S LAB S LAB ASHA A1C BASIC 29817 COMBINED COMBINED METABOLIC 9 PHYSICIAN PHYSICIAN PANEL S LAB S LAB CALCIUM TOTAL ALBUMIN 93372 Brianna LUNA URINE 8 CARE G MICROALBU ASSOCIATE MIN S SEMIQUANT ITATIVE CREATININ 01425 Brianna LUNA E OTHER 8 CARE G SOURCE ASSOCIATE S COMPREHEN 82319 COMBINED COMBINED SIVE 8 PHYSICIAN PHYSICIAN METABOLIC S LAB S LAB PANEL HEMOGLOBI 95559 COMBINED COMBINED N 8 PHYSICIAN PHYSICIAN GLYCOSYLA S LAB S LAB ASHA A1C BLOOD 84333 Brianna LUNA COUNT 8 CARE G COMPLETE ASSOCIATE AUTO&AUTO S DIFRNTL WBC Encounters Encounter Start End Date Code Location Performer Type Date [facility] - 3 [facility] N [facility]PATIEN [facility] T [facility] EMERGENCY 42274 [facility] 3 3 N DEPARTMEN COMMUNITY T VISIT HOSPITA HIGH/URGE NT SEVERITY OFFICE 73937 FAMILY IRMA Reed OUTPATIEN 1 1 CARE T VISIT ASSOCIATE 15 S MINUTES OFFICE 07527 FAMILY IRMA Reed OUTPATIEN 1 1 CARE T VISIT ASSOCIATE 15 S MINUTES OFFICE 78913 Brianna LUNA OUTPATIEN 0 0 CARE G T VISIT ASSOCIATE 15 S MINUTES [facility] T EMERGENCY 56825 [facility] DEPART[facility] INC T VISIT LOW/MODER SEVERITY OFFICE 98263 FAMILY RODRIGUEZYOSEF JASSOPATIEN 0 0 CARE R JORGE T VISIT ASSOCIATE 25 S MINUTES OFFICE 49876 FAMILY LAZOAKI LeonardEN 9 9 CARE R JORGE T VISIT ASSOCIATE 25 S MINUTES OFFICE 46916 Brianna LUNA OUTPATIEN 9 9 CARE G T VISIT ASSOCIATE 15 S MINUTES OFFICE 22197 Brianna LUNA OUTPATIEN 9 9 CARE G T VISIT ASSOCIATE 15 S MINUTES OFFICE 17517 Brianna LUNA OUTPATIEN 9 9 CARE G T VISIT ASSOCIATE 25 S MINUTES OFFICE 76778 Brianna LUNA OUTPATIEN 9 9 CARE G T VISIT ASSOCIATE 25 S MINUTES OFFICE 51068 Brianna LUNA OUTPATIEN 9 9 CARE G T VISIT ASSOCIATE 25 S MINUTES OFFICE 50301 Brianna LUNA 9 9 CARE G T VISIT ASSOCIATE 25 S MINUTES OFFICE 44647 Brianna LUNA 8 8 CARE G T VISIT ASSOCIATE 25 S MINUTES OFFICE 70407 Brianna LUNA 8 8 CARE G T VISIT ASSOCIATE 25 S MINUTES
--- OUTSIDE RECORDS SUMMARY | 2016-11-06 10:32 | External Medical Summary Rpt ---
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 Name Role Phone [facility] Un[place] [place] Unavailable Unavailable LAB, [facility] IRMA Reed, IRMA Reed Unavailable Unavailable Brianna SOLIS, IRMA, Unavailable Unavailable ADRIEL HERNANDEZ, Unavailable Unavailable [facility] Un[facility], [facility] Unavailable Unavailable HOSPITA, [facility] Unavailable Unavailable INC, [facility] Unavailable Unavailable SERVICES, [facility] Gretta CELIS, Unavailable Unavailable Gretta CELIS [id number], Unavailable Unavailable [id number] Unavailable Unavailable [id number] [address] [id number], [facility] [id number] [address] [id number] [facility] Unavailable Unavailable [...] Dietary 10-26-2016 counseling and surveillanc e 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 Z95.0 Presence of 10-26-2016 cardiac pacemaker 25939 DIAB W/O 04-08-2013 [facility] COMP TYPE I PHYSICIANS [JUV] NOT LA STATED UNCNTRL 92100 DIAB W/O 12-22-2012 [facility] COMP TYPE COMMUNITY II/UNS NOT HOSPITA STATED UNCNTRL 3899 UNSPECIFIED 12-22-2012 [facility] 4019 UNSPECIFIED 12-22-2012 [facility] ESSENTIAL COMMUNITY HYPERTENSIO HOSPITA N 91297 UNSPECIFIED 12-22-2012 [facility] CELLULITIS [facility] AND [facility] ABSCESS OF TOE 6827 CELLULITIS 12-22-2012 [facility]Y OF FOOT SERVICES EXCEPT TOES 2724 OTHER AND 09-14-2010 [facility] HYPERLIPIDE KRISTINE 7862 COUGH 06-03-2009 [facility] 04780 OTHER 05-22-2009 [facility] OF INC INTESTINE 91911 UNSPECIFIED 05-22-2009 [facility] CONSTIPATIO INC N 78597 ABDOMINAL 05-22-2009 [place] [facility]PEC[facility]IED [facility]ITE [facility] 81875 DIAB W/O 02-02-2009 [facility] COMP TYPE II/UNS TYPE UNCNTRL 27305 ASTHMA, 11-24-2008 [facility] , UNSPECIFIED STATUS 70392 PAIN IN 11-24-2008 [facility] JOINT, [facility] SHOULDER REGION 7852 UNDIAGNOSED 11-24-2008 [facility]ARDI[facility] MURMURS 5368 DYSPEPSIA&O 05-26-2008 [facility] TH[facility] SPEC [facility] DISORDERS FUNCTION STOMACH 2859 UNSPECIFIED 12-10-2007 [facility]EMIA [facility] E11.9 TYPE 2 DIABETES MELLITUS WITHOUT COMPLICATIO NS I21.3 ST ELEVATION (STEMI) MYOCARDIAL INFARCTION OF [facility] SITE I44.2 ATRIOVENTRI CULAR BLOCK, [...] -3 -3 .0 TE 94 OP ti MS 80 0- 0- 00 32 ER ve [...] 20 8- 3- 00 28 ER ve MN 00 20 20 AI N 80 11 11 D SH[facility] HC 1 PH HN L AR G 50 MA 0 CY MG 03 TA 93 BL 8 ET # 03 93 LI 00 05 06 4 30 30 RI 88 CO Ac SI 59 -2 -2 .0 TE 45 OP ti NO 10 4- 3- 00 52 ER ve MS 86 20 20 AI IL 20 11 11 D SHIMON -H [address] AR G Z MA 20 CY -2 5 03 MG 93 8 TA # B 03 93 MS 00 06 06 6. 30 RI 88 [...] -2 -0 .0 TE 69 OP ti MN 93 8- 3- 00 26 ER ve [...] -0 -0 .0 TE 75 OP ti MS 80 3- 2- 00 48 ER ve [...] 10 4- 4- 00 52 ER ve MS 86 20 20 AI IL 20 11 11 D SHIMON -H [address] AR G Z MA 20 CY -2 5 03 MG 93 8 TA # B 03 93 NA 00 08 05 3 60 30 RI 84 CO Ac MS 09 -2 -0 .0 TE 71 OP [...] -0 -0 .0 TE 75 OP ti MS 80 3- 4- 00 48 ER ve [...] 20 8- 0- 00 28 ER ve MN 00 20 20 AI N 80 11 [...] -0 -0 .0 TE 75 OP ti MS 80 3- 1- 00 48 ER ve OL 04 20 20 AI OL 71 11 11 D SHIMON 0 PH HN TA AR G RT MA RA CY TE 03 10 93 0 8 MG # 03 TA 93 B LE 00 03 03 6 10 50 RI 87 CO Ac VE 16 -2 -2 .0 TE 69 OP ti MN 93 8- 8- 00 26 ER ve [...] 20 8- 8- 00 28 ER ve MN 00 20 20 AI N 80 11 [...] CY 03 93 8 # 03 93 MS 00 03 03 6. 30 RI 87 [...] -1 -2 .0 TE 09 OP ti MN 96 0- 6- 00 57 ER ve [...] BA ZA 10 10 10 D BA MS 1 PH TU IN AR ND E [...] -0 -1 .0 TE 32 OP ti MS 80 7- 1- 00 00 ER ve OL 04 20 20 AI OL 71 09 10 D SHIMON 0 PH HN TA AR G RT M RA #3 TE 93 8 10 0 MG TA B MS 00 02 02 00 6. 30 RI [...] -0 -1 .0 TE 32 OP ti MS 80 7- 4- 00 00 ER ve [...] M #3 TA 93 BL 8 ET MS 00 01 12 01 6. 30 RI [...] 31 8- 7- 00 77 ER ve MN 04 20 20 AI N 80 09 [...] -0 -1 .0 TE 32 OP ti MS 80 7- 7- 00 00 ER ve [...] -0 -1 .0 TE 32 OP ti MS 80 7- 9- 00 00 ER ve [...] 31 5- 9- 00 50 ER ve MN 04 20 20 AI N 80 08 [...] -0 -2 .0 TE 32 OP ti MS 80 7- 2- 00 00 ER ve [...] 50 2- 2- 00 57 ER ve MN 19 20 20 AI N 20 09 [...] -0 -2 .0 TE 92 OP ti MS 80 9- 4- 00 19 ER ve [...] 31 5- 4- 00 50 ER ve MN 04 20 20 AI N 80 08 [...] -0 -2 .0 TE 92 OP ti MS 80 9- 7- 00 19 ER ve [...] 00 60 30 RI 79 CO Ac MS 09 -0 -1 .0 TE 41 OP [...] 31 5- 3- 00 50 ER ve MN 04 20 20 AI N 80 08 [...] -0 -3 .0 TE 92 OP ti MS 80 9- 0- 00 19 ER ve [...] -0 -1 .0 TE 92 OP ti MS 80 9- 8- 00 19 ER ve [...] -0 -2 .0 TE 92 OP ti MS 80 9- 1- 00 19 ER ve [...] 01 60 30 RI 75 CO Ac MS 09 -2 -2 .0 TE 18 OP [...] -0 -2 .0 TE 92 OP ti MS 80 9- 3- 00 19 ER ve [...] -1 -2 .0 TE 78 OP ti MS 80 8- 6- 00 13 ER ve [...] -1 -2 .0 TE 78 OP ti MS 80 8- 6- 00 13 ER ve [...] 93 .5 8 -2 5 MG TB MS 00 01 01 00 6. 30 RI [...] -1 -1 .0 TE 78 OP ti MS 80 8- 5- 00 13 ER ve [...] -1 -1 .0 TE 78 OP ti MS 80 8- 8- 00 13 ER ve [...] -1 -2 .0 TE 78 OP ti MS 80 8- 0- 00 13 ER ve OL 04 20 20 AI OL 71 08 08 D SHIMON 0 PH HN TA AR G RT M RA #3 TE 93 8 10 0 MG TA B ME 00 08 10 01 30 30 RI 74 CO Ac TO 37 -1 -2 .0 TE 78 OP ti MS 80 8- 3- 00 13 ER ve [...] 00 60 30 RI 75 CO Ac MS 09 -2 -0 .0 TE 18 OP [...] -1 -2 .0 TE 78 OP ti MS 80 8- 6- 00 13 ER ve [...] -1 -2 .0 TE 58 OP ti MS 80 8- 8- 00 43 ER ve [...] 93 .5 8 -2 5 MG TB MS 00 07 08 02 6. 21 RI [...] -1 -0 .0 TE 18 OP ti MS 80 7- 1- 00 32 ER ve OL 04 20 20 AI OL 71 08 08 D SHIMON 0 PH HN TA AR G RT M RA #3 TE 93 8 10 0 MG TA B MS 00 07 07 01 6. 21 RI [...] 08 D SHIMON E 9 PH HN MS AR G OP M #3 50 93 [...] -1 -0 .0 TE 11 OP ti MS 80 8- 3- 00 10 ER ve [...] -1 -2 .0 TE 11 t ti MS 80 8- 2- 00 10 Av ve [...] -1 -2 .0 TE 11 t ti MS 80 8- 4- 00 10 Av ve [...] -1 -1 .0 TE 11 t ti MS 80 8- 7- 00 10 Av ve [...] -1 -2 .0 TE 11 t ti MS 80 8- 6- 00 10 Av ve [...] -1 -2 .0 TE 11 t ti MS 80 8- 5- 00 10 Av ve [...] mm/hr Bacteria Ur Cult (10-17-2016 18:29) Bacteri [id number] complet a XXX 017 9 ed Anaerob 18:29 normal e+Aerob omaira e Cult (findin g) SCT UMXF Mixed urogeni apurva or skin omaira present . Suggest appropr iate recolle ction with timely deliver y to the laborat ory, if clinica lly indicat ed. L Bacteri [id number] complet a XXX 017 10,000- ed Anaerob 18:29 100,000 e+Aerob CFU/ml e Cult L CC XXX NOTAP complet VC-aCnc 017 NOT ed 18:29 APPLICA BLE L CRP SerPl-mCnc (10-17-2016 18:29) CRP 2 0.6 0-0.9 complet SerPl-m 017 mg/dL ed Cnc 18:29 ESR Bld Qn (10-17-2016 18:25) ESR Bld 23 0-20 complet Qn 017 mm/hr ed 18:25 Bacteria XXX Anaerobe+Aerobe Cult (10-17-2016 14:49) Bacteri [id number] complet a XXX 017 06 No ed Anaerob 14:49 growth e+Aerob (qualif e Cult ier value) SCT NGB6 NO GROWTH DAY 5. L TSH SerPl DL<=0.005 mIU/L-aCnc (10-17-2016 14:49) TSH 3.40 0.4-4.2 complet SerPl 017 uIU/mL ed DL<=0.0 14:49 05 mIU/L-a [facility] Procedures Procedure DOS Code Location Performer Comment BASIC 26651 COMBINED COMBINED METABOLIC 3 PHYSICIAN PHYSICIAN PANEL S LA S LA CALCIUM TOTAL CUL BACT 02085 [facility] XCPT 3 N N URINE COMMUNITY COMMUNITY BLOOD/STO HOSPITA HOSPITA OL AEROBIC ISOL CUL BACT 96353 [facility] AEROBIC 3 N N ADDL COMMUNITY COMMUNITY METHS HOSPITA HOSPITA DEFINITIV E EA ISOL RADIOLOGI 24221 [facility] C 3 N N EXAMINATI COMMUNITY [facility] ON FOOT 2 HOSPITA HOSPITA VIEWS SUSCEPTIB 01019 [facility] LTY STDY 3 N N ANTIMICRB [facility] IAL HOSPITA HOSPITA MICRO/AGA R DILUTJ INCISION 29046 [facility] & 3 N N DRAINAGE [facility] ABSCESS HOSPITA HOSPITA SIMPLE/SI NGLE GLUC BLD 18934 [facility] GLUC MNTR 3 N N DEV [facility] CLEARED HOSPITA HOSPITA FDA SPEC HOME USE INJECTION J2001 [facility] 3 N N LIDOCAINE [facility] HCL HOSPITA HOSPITA INTRAVENO US INFUS 10 MG COMPREHEN 16292 COMBINED COMBINED SIVE 3 PHYSICIAN PHYSICIAN METABOLIC S LA S LA PANEL HEMOGLOBI 96676 FAMILY FAMILY N 1 CARE CARE GLYCOSYLA ASSOCIATE ASSOCIATE ASHA A1C S S HEMOGLOBI 50581 FAMILY FAMILY N 1 CARE CARE GLYCOSYLA ASSOCIATE ASSOCIATE ASHA A1C S S COMPREHEN 75553 COMBINED COMBINED SIVE 1 PHYSICIAN PHYSICIAN METABOLIC S LA S LA PANEL CULTURE 07182 COMBINED COMBINED BACTERIAL 1 PHYSICIAN PHYSICIAN S LA S LA QUANTTATI VE COLONY COUNT URINE GLUCOSE 33847 Brianna LUNA POST 0 CARE G GLUCOSE ASSOCIATE DOSE S BLOOD 59582 Brianna LUNA COUNT 0 CARE G COMPLETE ASSOCIATE AUTO&AUTO S DIFRNTL WBC BLOOD 38686 [facility] 0 [facility] COMPLETE INC INC AUTO&AUTO DIFRNTL WBC URNLS DIP 44372 [facility] ANDRESON [facility] STICK/TAB INC INC LET REAGENT AUTO MICROSCOP Y RADEX ABD 31065 [facility] COMPL 0 MEDICAL ADRIEL AQT ABD IMAGING W/S/E/D ASSOCIATE VIEWS 1 S VIEW CH COMPREHEN 69592 [facility] SIVE 0 [facility] [place] [address] [facility] SANDOVAL AMYLASE 0 [place] [address] [facility] LIPASE 0 [facility] INC INC NEEDLE A4215 [facility] PHARMACY ANY SIZE 3938 3938 EACH COMPREHEN 69214 COMBINED COMBINED SIVE 0 PHYSICIAN PHYSICIAN METABOLIC S LAB S LAB PANEL HEMOGLOBI 43615 FAMILY OLMEDOEET, N 0 CARE Gretta PATEL GLYCOSYLA [place]OCI[place] [address] COMBINED COMBINED THYROID 0 PHYSICIAN PHYSICIAN STIMULATI S LAB S LAB NG HORMONE TSH GLUCOSE 15061 FAMILY LAZOT, POST 0 CARE Gretta PATEL GLUCOSE ASSOCIATE DOSE S ALBUMIN 62559 FAMILY CELIS, URINE 0 CARE Gretta PATEL MICROALBU ASSOCIATE MIN S SEMIQUANT ITATIVE CREATININ 21548 FAMILY CELIS, E OTHER 0 CARE Gretta PATEL SOURCE ASSOCIATE S BLOOD 22011 Brianna LUNA COUNT 9 CARE Erlinda COMPLETE ASSOCIATE AUTO&AUTO S DIFRNTL WBC HEMOGLOBI 70186 Brianna LUNA N 9 CARE G GLYCOSYLA ASSOCIATE ASHA A1C S COMPREHEN 77177 COMBINED COMBINED SIVE 9 PHYSICIAN PHYSICIAN METABOLIC S LAB S LAB PANEL NONINVASI 96112 Brianna LUNA VE 9 CARE G EAR/PULSE ASSOCIATE OXIMETRY S SINGLE DETER COLLECTIO 05196 Brianna LUNA N VENOUS 9 CARE G BLOOD ASSOCIATE VENIPUNCT S URE HEMOGLOBI 49412 COMBINED COMBINED N 9 PHYSICIAN PHYSICIAN GLYCOSYLA S LAB S LAB ASHA A1C BASIC 78476 COMBINED COMBINED METABOLIC 9 PHYSICIAN PHYSICIAN PANEL S LAB S LAB CALCIUM TOTAL ALBUMIN 31097 Brianna LUNA URINE 8 CARE G MICROALBU ASSOCIATE MIN S SEMIQUANT ITATIVE CREATININ 45484 Brianna LUNA E OTHER 8 CARE G SOURCE ASSOCIATE S COMPREHEN 20322 COMBINED COMBINED SIVE 8 PHYSICIAN PHYSICIAN METABOLIC S LAB S LAB PANEL HEMOGLOBI 84987 COMBINED COMBINED N 8 PHYSICIAN PHYSICIAN GLYCOSYLA S LAB S LAB ASHA A1C BLOOD 44837 Brianna LUNA COUNT 8 CARE G COMPLETE ASSOCIATE AUTO&AUTO S DIFRNTL WBC Encounters Encounter Start End Date Code Location Performer Type Date [facility] - 3 3 N OUTPATIEN COMMUNITY T HOSPITA EMERGENCY 45307 [facility] 3 3 N DEPARTMEN COMMUNITY T VISIT HOSPITA HIGH/URGE NT SEVERITY OFFICE 53399 FAMILY IRMA Reed OUTPATIEN 1 1 CARE T VISIT ASSOCIATE 15 S MINUTES OFFICE 92917 FAMILY IRMA Reed OUTPATIEN 1 1 CARE T VISIT ASSOCIATE 15 S MINUTES OFFICE 27209 Brianna LUNA OUTPATIEN 0 0 CARE G T VISIT ASSOCIATE 15 S MINUTES [facility]OSPITAL [facility] T EMERGENCY 24408 [facility] DEPARTMEN INC T VISIT LOW/MODER SEVERITY OFFICE 90053 FAMILY RODRIGUEZYOSEF JASSOPATIEN 0 0 CARE R JORGE T VISIT ASSOCIATE 25 S MINUTES OFFICE 17655 FAMILY LAZOAKI LeonardEN 9 9 CARE R JORGE T VISIT ASSOCIATE 25 S MINUTES OFFICE 00696 Brianna LUNA OUTPATIEN 9 9 CARE G T VISIT ASSOCIATE 15 S MINUTES OFFICE 84043 Brianna LUNA OUTPATIEN 9 9 CARE G T VISIT ASSOCIATE 15 S MINUTES OFFICE 05359 Brianna LUNA OUTPATIEN 9 9 CARE G T VISIT ASSOCIATE 25 S MINUTES OFFICE 99391 Brianna LUNA OUTPATIEN 9 9 CARE G T VISIT ASSOCIATE 25 S MINUTES OFFICE 76643 Brianna LUNA OUTPATIEN 9 9 CARE G T VISIT ASSOCIATE 25 S MINUTES OFFICE 16824 Brianna LUNA 9 9 CARE G T VISIT ASSOCIATE 25 S MINUTES OFFICE 72535 Brianna LUNA 8 8 CARE G T VISIT ASSOCIATE 25 S MINUTES OFFICE 04961 Brianna LUNA 8 8 CARE G T VISIT ASSOCIATE 25 S MINUTES
--- OUTSIDE RECORDS SUMMARY | 2016-11-06 10:38 | External Medical Summary Rpt ---
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 Name Role Phone CELLAROSI - YORBA Unavailable Unavailable PAT, CELLAROSI - YORBA PAT [facility] Un[facility] Unavailable [facility], [facility] Unavailable Unavailable [facility] Unavailable Unavailable LAB, [facility] IRMA Reed, IRMA Reed Unavailable Unavailable Brianna SOLIS, IRMA, Unavailable Unavailable ADRIEL HERNANDEZ, Unavailable Unavailable [facility] Unavailable Unavailable [facility], [facility] Unavailable Unavailable HOSPITA, [facility] Un[facility] Unavailable [facility], [facility] Un[facility] Unavailable SERVICES, [facility] Gretta CELIS, Unavailable Unavailable Gretta CELIS [id number], Unavailable Unavailable [id number] Unavailable Unavailable [id number] # [id number], [facility] [address] # [id number] [facility] Unavailable Unavailable 3938, [facility] 3938 Purpose Continuity of Care Document - 07-16-2007 through 2016 Problems Code Diagnosis DOS Provider Status 85308 DIAB W/O 04-08-2013 [facility] COMP TYPE I PHYSICIANS [JUV] NOT LA STATED UNCNTRL 03885 DIAB W/O 12-22-2012 [facility] COMP TYPE COMMUNITY II/UNS NOT HOSPITA STATED UNCNTRL 3899 UNSPECIFIED 12-22-2012 [facility] 4019 UNSPECIFIED 12-22-2012 [facility] N 84896 UNSPECIFIED 12-22-2012 [facility] ABSCESS OF TOE 6928 CELLULITIS 12-22-2012 [facility] FOOT [facility] EXCEPT TOES 2724 OTHER AND 09-14-2010 [facility] HYPERLIPIDE CHEVY 7862 COUGH 06-03-2009 [facility] 44898 OTHER 05-22-2009 [facility] INTESTINE 68334 UNSPECIFIED 05-22-2009 [facility] N 30732 ABDOMINAL 05-22-2009 [place] [facility], [facility]PEC[facility]ITE [facility] 65473 DIAB W/O 02-02-2009 [facility] COMP TYPE II/UNS TYPE UNCNTRL 07020 ASTHMA, 11-24-2008 [facility] , UNSPECIFIED STATUS 90752 PAIN IN 11-24-2008 [facility]INT[facility] SHOULDER REGION 7852 UNDIAGNOSED 11-24-2008 [facility] MURMURS 5368 DYSPEPSIA&O 05-26-2008 [facility]C [facility] DISORDERS FUNCTION STOMACH 2859 UNSPECIFIED 12-10-2007 [facility] Medications Na ND Rx Da Fi Fi [...] -3 -3 .0 TE 94 OP ti AL 80 0- 0- 00 32 ER ve [...] 10 4- 3- 00 52 ER ve AL 86 20 20 AI IL 20 11 11 D [facility] -H [address] AR G Z MA 20 CY -2 5 03 MG 93 8 TA # B 03 93 AL 00 06 06 6. 30 RI 88 [...] -0 -0 .0 TE 75 OP ti AL 80 3- 2- 00 48 ER ve [...] 10 4- 4- 00 52 ER ve AL 86 20 20 AI IL 20 11 11 D [facility]ON -H [address] AR G Z MA 20 CY -2 5 03 MG 93 8 TA # B 03 93 NA 00 08 05 3 60 30 RI 84 CO Ac AL 09 -2 -0 .0 TE 71 OP [...] -0 -0 .0 TE 75 OP ti AL 80 3- 4- 00 48 ER ve [...] ET 03 93 8 # 03 93 ME 00 01 04 5 30 30 RI 87 CO Ac TO 37 -0 -0 .0 TE 75 OP ti AL 80 3- 1- 00 48 ER ve OL 04 20 20 AI OL 71 11 11 D SHIMON 0 PH HN TA AR G RT MA RA CY TE 03 10 93 0 8 MG # 03 TA 93 B LO 00 01 04 5 30 30 RI 87 CO Ac VA 37 -0 -0 .0 TE [address] 86 3- 1- 00 49 ER ve AT 52 20 20 AI IN 09 11 11 D SHIMON 1 PH HN 20 AR G MA MG CY TA 03 BL 93 ET 8 # 03 93 LE 00 03 03 6 10 50 [...] CY 03 93 8 # 03 93 AL 00 03 03 6. 30 RI 87 [...] 93 RI 8 PS # 03 93 JA 00 11 02 01 30 30 RI 80 CO Ac NU 00 -1 -2 .0 TE 93 OP ti 60 8- 6- 00 03 ER ve A 27 20 20 AI 10 73 09 10 D SHIMON 0 1 PH HN MG AR G M TA #3 BL 93 ET 8 LE 00 09 02 02 30 30 RI 81 CO Ac SC 07 -1 -2 .0 TE 22 OP ti OL 80 1- 6- 00 60 ER ve 23 20 20 AI 40 40 09 10 D SHIMON 5 PH HN MG AR G M CA #3 PS 93 UL 8 E LE 00 02 02 00 15 75 RI 82 CO Ac VE 16 -1 -2 .0 TE 09 OP ti [place] 96 0- 6- 00 57 ER ve R 43 20 20 AI FL 91 10 10 D SHIMON EX 0 PH HN PE AR G N M 10 #3 0 93 UN 8 IT S/ ML CY 00 02 02 00 15 5 RI 82 SO Ac CL 37 -1 -2 .0 TE 09 KA ti OB 80 0- 6- 00 62 N ve EN 75 20 20 AI BA ZA 10 10 10 D BA AL 1 PH TU IN AR ND E [...] ND M E #3 O 93 8 GL 00 08 02 02 60 30 RI 79 CO Ac YB 09 -0 -1 .0 TE 41 OP ti UR 39 3- 1- 00 75 ER ve ID 36 20 20 AI E 41 09 10 D SHIMON 5 0 PH HN MG AR G M TA #3 BL 93 ET 8 HY 00 08 02 05 30 30 RI 79 CO Ac ZA 00 -1 -1 .0 TE 50 OP ti AR 60 0- 1- 00 73 ER ve 74 20 20 AI 10 53 09 10 D SHIMON 0- 1 PH HN 12 AR G .5 M #3 TA 93 BL 8 ET AL 00 02 02 00 6. 30 RI 82 CO Ac OV 08 -0 -1 70 TE 01 OP ti EN 51 4- 1- 0 07 ER ve TI 13 20 20 AI L 20 10 10 D SHIMON HF 1 PH HN A AR G 90 M #3 MC 93 G 8 IN [place] LE R ME 00 10 02 04 30 30 RI 80 CO Ac TO 37 -0 -1 .0 TE 32 OP ti AL 80 7- 1- 00 00 ER ve OL 04 20 20 AI OL 71 09 10 D SHIMON 0 PH HN TA AR G RT M RA #3 TE 93 8 10 0 MG TA B PO 62 01 01 00 60 30 RI 81 CO Ac TA 03 -1 -2 .0 TE 69 OP ti SS 70 3- 8- 00 35 ER ve IU 56 20 20 AI M 00 10 10 D SIHMON CL 1 PH HN AR G ER [...] -0 -1 .0 TE 32 OP ti AL 80 7- 4- 00 00 ER ve OL 04 20 20 AI OL 71 09 10 D SHIMON 0 PH HN TA AR G RT M RA #3 TE 93 8 10 0 MG TA B HY 00 08 01 04 30 30 RI 79 CO Ac ZA 00 -1 -1 .0 TE 50 OP ti AR 60 0- 4- 00 73 ER ve 74 20 20 AI 10 53 09 10 D SHIMON 0- 1 PH HN 12 AR G .5 M #3 TA 93 BL 8 ET FE 00 10 01 01 30 30 RI 80 CO Ac RR 67 -1 -1 .0 TE 37 OP ti OU 70 2- 4- 00 68 ER ve S 07 20 20 AI ADAMS 00 09 10 D SHIMON LF 1 PH HN AT AR G E M 32 #3 5 93 MG 8 TA BL ET ME 00 10 12 02 30 30 RI 80 CO Ac TO 37 -0 -1 .0 TE 32 OP ti AL 80 7- 7- 00 00 ER ve OL 04 20 20 AI OL 71 09 09 D SHIMON 0 PH HN TA AR G RT M RA #3 TE 93 8 10 0 MG TA B HY 00 08 12 03 30 30 RI 79 CO Ac ZA 00 -1 -1 .0 TE 50 OP ti AR 60 0- 7- 00 73 ER ve 74 20 20 AI 10 53 09 09 D SHIMON 0- 1 PH HN 12 AR G .5 M #3 TA 93 BL 8 ET LE 00 09 12 00 30 30 RI 81 CO Ac SC 07 -1 -1 .0 TE 22 OP ti OL 80 1- 7- 00 60 ER ve 23 20 20 AI 40 40 09 09 D SHIMON 5 PH HN MG AR G M CA #3 PS 93 UL 8 E ME 00 12 12 00 60 30 RI 81 CO Ac TF 09 -0 -1 .0 TE 21 OP ti OR 31 8- 7- 00 77 ER ve [place] 04 20 20 AI N 80 09 09 D SHIMON HC 1 PH HN L AR G 50 M 0 #3 MG 93 8 TA BL ET AL 00 01 12 01 6. 30 RI 76 CO Ac OV 08 -1 -1 70 TE 68 OP ti EN 51 4- 7- 0 05 ER ve TI 13 20 20 AI L 20 09 09 D SHIMON HF 1 PH HN A AR G 90 M #3 MC 93 G 8 IN [place] LE R JA 00 11 12 00 30 30 RI 80 CO Ac NU 00 -1 -0 .0 TE 93 OP ti 60 8- 3- 00 03 ER ve A 27 20 20 AI 10 73 09 09 D SHIMON 0 1 PH HN MG AR G M TA #3 BL 93 ET 8 ME 00 10 11 01 30 30 RI 80 CO Ac TO 37 -0 -1 .0 TE 32 OP ti AL 80 7- 9- 00 00 ER ve [...] #3 MG 93 8 TA BL ET PO 62 12 11 05 60 30 RI 76 CO Ac TA 03 -1 -1 .0 TE 25 OP ti SS 70 5- 9- 00 46 ER ve IU 56 20 20 AI M 00 08 09 D SHIMON CL 1 PH HN AR G ER M #3 10 93 8 ME Q CA PS UL E HY 00 08 11 02 30 30 RI 79 CO Ac ZA 00 -1 -1 .0 TE 50 OP ti AR 60 0- 9- 00 73 ER ve 74 20 20 AI 10 53 09 09 D SHIMON 0- 1 PH HN 12 AR G .5 M #3 TA 93 BL 8 ET LE 00 09 11 02 30 30 RI 79 CO Ac SC 07 -1 -1 .0 TE 94 OP ti OL 80 1- 9- 00 65 ER ve 23 20 20 AI 40 40 09 09 D SHIMON 5 PH HN MG AR G M CA #3 PS 93 UL 8 E GL 00 08 10 01 60 30 RI 79 CO Ac YB 09 -0 -2 .0 TE 41 OP ti UR 39 3- 2- 00 75 ER ve ID 36 20 20 AI E 41 09 09 D SHIMON 5 0 PH HN MG AR G M TA #3 BL 93 ET 8 ME 00 10 10 00 30 30 RI 80 CO Ac TO 37 -0 -2 .0 TE 32 OP ti AL 80 7- 2- 00 00 ER ve OL 04 20 20 AI OL 71 09 09 D SHIMON 0 PH HN TA AR G RT M RA #3 TE 93 8 10 0 MG TA B ME 60 10 10 00 60 30 RI 80 CO Ac TF 50 -1 -2 .0 TE 37 OP ti OR 50 2- 2- 00 57 ER ve [place] 19 20 20 AI N 20 09 09 D SHIMON HC 0 PH HN L AR G 1, M 00 #3 0 93 MG 8 TA BL ET FE 00 10 10 00 30 30 [...] 93 UL 8 E PO 62 12 09 04 60 30 RI 76 CO Ac TA 03 -1 -2 .0 TE 25 OP ti SS 70 5- 4- 00 46 ER ve IU 56 20 20 AI M 00 08 09 D SHIMON CL 1 PH HN AR G ER M #3 10 93 8 ME Q CA PS UL E ME 00 04 09 05 30 30 RI 77 CO Ac TO 37 -0 -2 .0 TE 92 OP ti AL 80 9- 4- 00 19 ER ve OL 04 20 20 AI OL 71 09 09 D SHIMON 0 PH HN TA AR G RT M RA #3 TE 93 8 10 0 MG TA B HY 00 08 09 00 30 30 RI 79 CO Ac ZA 00 -1 -2 .0 TE 50 OP ti AR 60 0- 4- 00 73 ER ve 74 20 20 AI 10 53 09 09 D SHIMON 0- 1 PH HN 12 AR G .5 M #3 TA 93 BL 8 ET ME 00 12 09 05 60 30 RI 76 CO Ac TF 09 -1 -2 .0 TE 25 OP ti OR 31 5- 4- 00 50 ER ve [place] 04 20 20 AI N 80 08 09 D SHIMON HC 1 PH HN L AR G 50 M 0 #3 MG 93 8 TA BL ET LE 00 09 09 00 30 30 RI 79 CO Ac SC 07 -1 -2 .0 TE 94 OP ti OL 80 1- 4- 00 65 ER ve 23 20 20 AI 40 40 09 09 D SHIMON 5 PH HN MG AR G M CA #3 PS 93 UL 8 E ME 00 04 08 04 30 30 RI 77 CO Ac TO 37 -0 -2 .0 TE 92 OP ti AL 80 9- 7- 00 19 ER ve OL 04 20 20 AI OL 71 09 09 D SHIMON 0 PH HN TA AR G RT M RA #3 TE 93 8 10 0 MG TA B GL 00 08 08 00 60 30 RI 79 CO Ac YB 09 -0 -2 .0 TE 41 OP ti UR 39 3- 7- 00 75 ER ve ID 36 20 20 AI E 41 09 09 D SHIMON 5 0 PH HN MG AR G M TA #3 BL 93 ET 8 LE 00 02 08 06 30 30 RI 77 CO Ac SC 07 -0 -2 .0 TE 12 OP ti OL 80 2- 7- 00 54 ER ve 23 20 20 AI 40 40 09 09 D SHIMON 5 PH HN MG AR G M CA #3 PS 93 UL 8 E NA 00 08 08 00 60 30 RI 79 CO Ac AL 09 -0 -1 .0 TE 41 OP [...] BL 93 ET 8 TR 60 04 08 03 15 30 RI 77 CO Ac IA 50 -0 -1 .0 TE 87 OP ti MT 52 6- 3- 00 36 ER ve ER 65 20 20 AI EN 60 09 09 D SHIMON E- 1 PH HN HC AR G TZ M #3 37 93 .5 8 -2 5 MG TB LE 00 02 07 05 30 30 RI 77 CO Ac SC 07 -0 -3 .0 TE 12 OP ti OL 80 2- 0- 00 54 ER ve 23 20 20 AI 40 40 09 09 D SHIMON 5 PH HN MG AR G M CA #3 PS 93 UL 8 E FE 00 08 07 04 30 30 RI 74 CO Ac RR 67 -1 -3 .0 TE 78 OP ti OU 70 8- 0- 00 12 ER ve S 07 20 20 AI ADAMS 00 08 09 D SHIMON LF 1 PH HN AT AR G E M 32 #3 5 93 MG 8 TA BL ET PO 62 12 07 03 60 30 RI 76 CO Ac TA 03 -1 -3 .0 TE 25 OP ti SS 70 5- 0- 00 46 ER ve IU 56 20 20 AI M 00 08 09 D SHIMON CL 1 PH HN AR G ER M #3 10 93 8 ME Q CA PS UL E ME 00 04 07 03 30 30 RI 77 CO Ac TO 37 -0 -3 .0 TE 92 OP ti AL 80 9- 0- 00 19 ER ve [...] PS 93 UL 8 E 00 12 06 03 60 30 RI 76 CO Ac 17 -1 -1 .0 TE 25 OP ti 24 5- 8- 00 50 ER ve 33 20 20 AI 16 08 09 D SHIMON 0 PH HN AR G M #3 93 8 TR 60 04 06 01 15 30 RI 77 CO Ac IA 50 -0 -1 .0 TE 87 OP ti MT 52 6- 8- 00 36 ER ve ER 65 20 20 AI EN 60 09 09 D SHIMON E- 1 PH HN HC AR G TZ M #3 37 93 .5 8 -2 5 MG TB ME 00 04 06 02 30 30 RI 77 CO Ac TO 37 -0 -1 .0 TE 92 OP ti AL 80 9- 8- 00 19 ER ve OL 04 20 20 AI OL 71 09 09 D SHIMON 0 PH HN TA AR G RT M RA #3 TE 93 8 10 0 MG TA B GL 00 04 06 02 30 30 RI 77 CO Ac YB 09 -0 -1 .0 TE 87 OP ti UR 39 6- 8- 00 12 ER ve ID 36 20 20 AI E 41 09 09 D SHIMON 5 0 PH HN MG AR G M TA #3 BL 93 ET 8 GL 00 04 05 01 30 30 RI 77 CO Ac YB 09 -0 -2 .0 TE 87 OP ti UR 39 6- 1- 00 12 ER ve ID 36 20 20 AI E 41 09 09 D SHIMON 5 0 PH HN MG AR G M TA #3 BL 93 ET 8 LE 00 02 05 03 30 [...] -0 -2 .0 TE 92 OP ti AL 80 9- 1- 00 19 ER ve [...] Q CA PS UL E TR 60 04 05 00 15 30 RI 77 CO Ac IA 50 -0 -0 .0 TE 87 OP ti MT 52 6- 7- 00 36 ER ve ER 65 20 20 AI EN 60 09 09 D SHIMON E- 1 PH HN HC AR G TZ M #3 37 93 .5 8 -2 5 MG TB FE 00 08 05 03 30 30 RI 74 CO Ac RR 67 -1 -0 .0 TE 78 OP ti OU 70 8- 7- 00 12 ER ve S 07 20 20 AI ADAMS 00 08 09 D SHIMON LF 1 PH HN AT AR G E M 32 #3 5 93 MG 8 TA BL ET LE 00 02 04 02 30 30 [...] 01 60 30 RI 75 CO Ac AL 09 -2 -2 .0 TE 18 OP ti OX 30 9- 3- 00 18 ER ve EN 14 20 20 AI 90 08 09 D SHIMON 50 1 PH HN 0 AR G MG M #3 TA 93 BL 8 ET ME 00 04 04 00 30 30 RI 77 CO Ac TO 37 -0 -2 .0 TE 92 OP ti AL 80 9- 3- 00 19 ER ve OL 04 20 20 AI OL 71 09 09 D SHIMON 0 PH HN TA AR G RT M RA #3 TE 93 8 10 0 MG TA B 00 12 04 02 60 30 RI 76 CO Ac 17 -1 -2 .0 TE 25 OP ti 24 5- 3- 00 50 ER ve 33 20 20 AI 16 08 09 D SHIMON 0 PH HN AR G M #3 93 8 TR 60 08 04 06 15 30 RI 74 CO Ac IA 50 -1 -0 .0 TE 58 OP ti MT 52 8- 9- 00 48 ER ve ER 65 20 20 AI EN 60 08 09 D SHIMON E- 1 PH HN HC AR G TZ M #3 37 93 .5 8 -2 5 MG TB LE 00 02 03 01 30 30 [...] -1 -2 .0 TE 78 OP ti AL 80 8- 6- 00 13 ER ve OL 04 20 20 AI OL 71 08 09 D SHIMON 0 PH HN TA AR G RT M RA #3 TE 93 8 10 0 MG TA B GL 00 08 03 06 30 30 RI 74 CO Ac YB 09 -1 -2 .0 TE 78 OP ti UR 39 8- 6- 00 11 ER ve ID 36 20 20 AI E 41 08 09 D SHIMON 5 0 PH HN MG AR G M TA #3 BL 93 ET 8 PO 62 12 03 01 60 30 [...] MG 8 TA BL ET LE 00 02 02 00 30 30 RI 77 CO Ac SC 07 -0 -2 .0 TE 12 OP ti OL 80 2- 6- 00 54 ER ve 23 20 20 AI 40 40 09 09 D SHIMON 5 PH HN MG AR G M CA #3 PS 93 UL 8 E ME 00 08 02 05 30 30 RI 74 CO Ac TO 37 -1 -2 .0 TE 78 OP ti AL 80 8- 6- 00 13 ER ve OL 04 20 20 AI OL 71 08 09 D SHIMON 0 PH HN TA AR G RT M RA #3 TE 93 8 10 0 MG TA B TR 60 08 02 05 15 30 RI 74 CO Ac IA 50 -1 -2 .0 TE 58 OP ti MT 52 8- 6- 00 48 ER ve ER 65 20 20 AI EN 60 08 09 D SHIMON E- 1 PH HN HC AR G TZ M #3 37 93 .5 8 -2 5 MG TB GL 00 08 02 05 30 30 [...] 93 .5 8 -2 5 MG TB AL 00 01 01 00 6. 30 RI [...] -1 -1 .0 TE 78 OP ti AL 80 8- 5- 00 13 ER ve [...] #3 BL 93 ET 8 PO 62 12 01 00 60 30 RI 76 CO Ac TA 03 -1 -0 .0 TE 25 OP ti SS 70 5- 1- 00 46 ER ve IU 56 20 20 AI M 00 08 09 D SHIMON CL 1 PH HN AR G ER M #3 10 93 8 ME Q CA PS UL E 00 12 01 00 60 30 RI 76 CO Ac 17 -1 -0 .0 TE 25 OP ti 24 5- 1- 00 50 ER ve 33 20 20 AI 16 08 09 D SHIMON 0 PH HN AR G M #3 93 8 GL 00 08 12 03 30 30 RI 74 CO Ac YB 09 -1 -1 .0 TE 78 OP ti UR 39 8- 8- 00 11 ER ve ID 36 20 20 AI E 41 08 08 D SHIMON 5 0 PH HN MG AR G M TA #3 BL 93 ET 8 TR 60 08 12 03 15 30 RI 74 CO Ac IA 50 -1 -1 .0 TE 58 OP ti MT 52 8- 8- 00 48 ER ve ER 65 20 20 AI EN 60 08 08 D SHIMON E- 1 PH HN HC AR G TZ M #3 37 93 .5 8 -2 5 MG TB FE 00 08 12 01 30 30 RI 74 CO Ac RR 67 -1 -1 .0 TE 78 OP ti OU 70 8- 8- 00 12 ER ve S 07 20 20 AI ADAMS 00 08 08 D SHIMON LF 1 PH HN AT AR G E M 32 #3 5 93 MG 8 TA BL ET ME 00 08 12 03 30 30 RI 74 CO Ac TO 37 -1 -1 .0 TE 78 OP ti AL 80 8- 8- 00 13 ER ve OL 04 20 20 AI OL 71 08 08 D SHIMON 0 PH HN TA AR G RT M RA #3 TE 93 8 10 0 MG TA B LE 00 12 12 04 30 30 [...] M #3 93 8 TR 60 08 11 02 15 [...] -1 -2 .0 TE 78 OP ti AL 80 8- 0- 00 13 ER ve OL 04 20 20 AI OL 71 08 08 D SHIMON 0 PH HN TA AR G RT M RA #3 TE 93 8 10 0 MG TA B GL 00 08 11 02 30 30 RI 74 CO Ac YB 09 -1 -2 .0 TE 78 OP ti UR 39 8- 0- 00 11 ER ve ID 36 20 20 AI E 41 08 08 D SHIMON 5 0 PH HN MG AR G M TA #3 BL 93 ET 8 ME 00 08 10 01 30 30 RI 74 CO Ac TO 37 -1 -2 .0 TE 78 OP ti AL 80 8- 3- 00 13 ER ve OL 04 20 20 AI OL 71 08 08 D SHIMON 0 PH HN TA AR G RT M RA #3 TE 93 8 10 0 MG TA B 00 12 10 05 60 30 RI 71 CO Ac 17 -1 -2 .0 TE 11 OP ti 24 8- 3- 00 15 ER ve 33 20 20 AI 16 07 08 D SHIMON 0 PH HN AR G M #3 93 8 GL 00 08 10 01 30 30 RI 74 CO Ac YB 09 -1 -2 .0 TE 78 OP ti UR 39 8- 3- 00 11 ER ve ID 36 20 20 AI E 41 08 08 D SHIMON 5 0 PH HN MG AR G M TA #3 BL 93 ET 8 TR 60 08 10 01 15 [...] 00 60 30 RI 75 CO Ac AL 09 -2 -0 .0 TE 18 OP ti OX 30 9- 9- 00 18 ER ve EN 14 20 20 AI 90 08 08 D SHIMON 50 1 PH HN 0 AR G MG M #3 TA 93 BL 8 ET 00 12 09 04 60 30 RI [...] BL 93 ET 8 TR 60 08 09 00 15 30 RI 74 CO Ac IA 50 -1 -2 .0 TE 58 OP ti MT 52 8- 6- 00 48 ER ve ER 65 20 20 AI EN 60 08 08 D SHIMON E- 1 PH HN HC AR G TZ M #3 37 93 .5 8 -2 5 MG TB 58 12 09 04 60 30 RI 71 CO Ac 17 -1 -2 .0 TE 11 OP ti 70 8- 6- 00 11 ER ve 00 20 20 AI 10 07 08 D SHIMON 4 PH HN AR G M #3 93 8 ME 00 08 09 00 30 30 RI 74 CO Ac TO 37 -1 -2 .0 TE 78 OP ti AL 80 8- 6- 00 13 ER ve OL 04 20 20 AI OL 71 08 08 D SHIMON 0 PH HN TA AR G RT M RA #3 TE 93 8 10 0 MG TA B LE 00 12 09 01 30 30 RI 71 No Ac SC 07 -2 -2 .0 TE 15 t ti OL 80 0- 6- 00 62 Av ve 23 20 20 AI ai 40 40 07 08 D la 5 PH bl MG AR e M CA #3 PS 93 UL 8 E LE 00 12 08 00 30 30 [...] -2 5 MG TB ME 00 08 08 00 30 30 RI 74 CO Ac TO 37 -1 -2 .0 TE 56 OP ti AL 80 6- 8- 00 58 ER ve OL 04 20 20 AI [...] M TA #3 BL 93 ET 8 AL 00 07 08 02 6. 21 RI 69 CO Ac OV 08 -3 -1 70 TE 04 OP ti EN 51 0- 4- 0 06 ER ve TI 13 20 20 AI L 20 07 08 D SHIMON HF 1 PH HN A AR G 90 M #3 MC 93 G 8 IN [place] LE R ME 00 07 08 00 30 30 RI 74 CO Ac TO 37 -1 -0 .0 TE 18 OP ti AL 80 7- 1- 00 32 ER ve OL 04 20 20 AI OL 71 08 08 D SHIMON 0 PH HN TA AR G RT M RA #3 TE 93 8 10 0 MG TA B 00 12 08 03 60 30 RI [...] #3 BL 93 ET 8 LE 00 07 08 00 30 30 RI 74 CO Ac SC 07 -1 -0 .0 TE 18 OP ti OL 80 7- 1- 00 34 ER ve 23 20 20 AI 40 40 08 08 D SHIMON 5 PH HN MG AR G M CA #3 PS 93 UL 8 E TR 60 12 07 05 15 30 [...] 5 93 MG 8 TA BL ET AL 00 07 07 01 6. 21 RI 69 CO Ac OV 08 -3 -1 70 TE 04 OP ti EN 51 0- 7- 0 06 ER ve TI 13 20 20 AI L 20 07 08 D SHIMON HF 1 PH HN A AR G 90 M #3 MC 93 G 8 IN ZUÑIGA LE R 58 12 07 03 60 30 RI 71 CO Ac 17 -1 -1 .0 TE 11 OP ti 70 8- 7- 00 11 ER ve 00 20 20 AI 10 07 08 D SHIMON 4 PH HN AR G M #3 93 8 FL 00 07 07 00 16 25 RI 74 CO Ac UT 05 -0 -1 .0 TE 02 OP ti IC 43 5- 7- 00 07 ER ve 27 20 20 AI ON 09 08 08 D SHIMON E 9 PH HN AL AR G OP M #3 50 93 8 MC G SP RA Y LE 00 12 07 05 30 30 RI 71 CO Ac SC 07 -1 -0 .0 TE 60 OP ti OL 80 8- 3- 00 85 ER ve 17 20 20 AI 20 60 07 08 D SHIMON 5 PH HN MG AR G M CA #3 PS 93 UL 8 E ME 00 12 07 06 30 30 RI 71 CO Ac TO 37 -1 -0 .0 TE 11 OP ti AL 80 8- 3- 00 10 ER ve OL 04 20 20 AI OL 71 07 08 D SHIMON 0 PH HN TA AR G RT M RA #3 TE 93 8 10 0 MG TA B GL 00 12 07 06 30 30 RI 71 CO Ac YB 09 -1 -0 .0 TE 11 OP ti UR 39 8- 3- 00 14 ER ve ID 36 20 20 AI E 41 07 08 D SHIMON 5 0 PH HN MG AR G M TA #3 BL 93 ET 8 TR 60 12 06 04 15 30 [...] -1 -2 .0 TE 11 t ti AL 80 8- 2- 00 10 Av ve [...] CA #3 PS 93 UL 8 E 58 12 05 02 60 30 RI 71 No Ac 17 -1 -0 .0 TE 11 t ti 70 8- 8- 00 11 Av ve 00 20 20 AI ai 10 07 08 D la 4 PH bl AR e M #3 93 8 TR 60 12 05 03 15 30 RI 71 No Ac IA 50 -1 -0 .0 TE 11 t ti MT 52 8- 8- 00 08 Av ve ER 65 20 20 AI ai EN 60 07 08 D la E- 1 PH bl HC AR e TZ M #3 37 93 .5 8 -2 5 MG TB ME 00 12 04 04 30 30 RI 71 No Ac TO 37 -1 -2 .0 TE 11 t ti AL 80 8- 4- 00 10 Av ve [...] BL 93 ET 8 LE 00 12 04 03 30 30 RI 71 No Ac SC 07 -1 -2 .0 TE 60 t ti OL 80 8- 4- 00 85 Av ve 17 20 20 AI ai 20 60 07 08 D la 5 PH bl MG AR e M CA #3 PS 93 UL 8 E GL 00 12 04 03 30 30 RI 71 No Ac YB 09 -1 -1 .0 TE 11 t ti UR 39 8- 7- 00 14 Av ve ID 36 20 20 AI ai E 41 07 08 D la 5 0 PH bl MG AR e M TA #3 BL 93 ET 8 LE 00 12 04 02 30 30 [...] bl AR e M #3 93 8 ME 00 12 04 03 30 30 RI 71 No Ac TO 37 -1 -1 .0 TE 11 t ti AL 80 8- 7- 00 10 Av ve OL 04 20 20 AI ai OL 71 07 08 D la 0 PH bl TA AR e RT M RA #3 TE 93 8 10 0 MG TA B TR 60 12 04 02 15 30 RI 71 No Ac IA 50 -1 -1 .0 TE 11 t ti MT 52 8- 0- 00 08 Av ve ER 65 20 20 AI ai EN 60 07 08 D la E- 1 PH bl HC AR e TZ M #3 37 93 .5 8 -2 5 MG TB FE 00 07 04 05 30 30 RI 68 No Ac RR 67 -1 -1 .0 TE 90 t ti OU 70 9- 0- 00 34 Av ve S 07 20 20 AI ai ADAMS 00 07 08 D la LF 1 PH bl AT AR e E M 32 #3 5 93 MG 8 TA BL ET LE 00 12 03 01 30 30 RI 71 No Ac SC 07 -1 -2 .0 TE 60 t ti OL 80 8- 6- 00 85 Av ve 17 20 20 AI ai 20 60 07 08 D la 5 PH bl MG AR e M CA #3 PS 93 UL 8 E 58 12 03 01 60 30 RI 71 No Ac 17 -1 -2 .0 TE 11 t ti 70 8- 6- 00 11 Av ve 00 20 20 AI ai 10 07 08 D la 4 PH bl AR e M #3 93 8 GL 00 12 03 02 30 30 RI 71 No Ac YB 09 -1 -2 .0 TE 11 t ti UR 39 8- 6- 00 14 Av ve ID 36 20 20 AI ai E 41 07 08 D la 5 0 PH bl MG AR e M TA #3 BL 93 ET 8 TR 60 12 03 01 15 30 [...] -1 -2 .0 TE 11 t ti AL 80 8- 6- 00 10 Av ve OL 04 20 20 AI ai OL 71 07 08 D la 0 PH bl TA AR e RT M RA #3 TE 93 8 10 0 MG TA B FE 00 07 03 04 30 30 RI 68 No Ac RR 67 -1 -2 .0 TE 90 t ti OU 70 9- 6- 00 34 Av ve S 07 20 20 AI ai ADAMS 00 07 08 D la LF 1 PH bl AT AR e E M 32 #3 5 93 MG 8 TA BL ET GL 00 12 03 01 30 30 [...] -1 -2 .0 TE 11 t ti AL 80 8- 5- 00 10 Av ve [...] 5 93 MG 8 TA BL ET Procedures Procedure DOS Code Location Performer Comment BASIC 93187 COMBINED COMBINED METABOLIC 3 PHYSICIAN PHYSICIAN PANEL S LA S LA CALCIUM TOTAL CUL BACT 48628 [facility] XCPT 3 N N URINE [facility] HOSPITA OL AEROBIC ISOL INJECTION J2001 [facility] 3 N N LIDOCAINE [facility] HOSPITA INTRAVENO US INFUS 10 MG RADIOLOGI 84293 [facility] C 3 N N EXAMINATI [facility] ON FOOT 2 HOSPITA HOSPITA VIEWS GLUC BLD 60098 [facility] GLUC MNTR 3 N N DEV [facility]ED [facility] HOSPITA FDA SPEC HOME USE SUSCEPTIB 79459 [facility] LTY STDY 3 N N ANTIMICRB [facility] HOSPITA MICRO/AGA R DILUTJ INCISION 44699 [facility] & 3 EMERGENCY - [facility] [employer] PAT ABSCESS SIMPLE/SI NGLE CUL BACT 96811 [facility] AEROBIC 3 N N ADDL [facility]HS [facility] HOSPITA DEFINITIV E EA ISOL COMPREHEN 17300 COMBINED COMBINED SIVE 3 PHYSICIAN PHYSICIAN METABOLIC S LA S LA PANEL HEMOGLOBI 05746 [facility] FAMILY N 1 CARE CARE GLYCOSYLA ASSOCIATE ASSOCIATE ASHA A1C S S COMPREHEN 35087 COMBINED COMBINED SIVE 1 PHYSICIAN PHYSICIAN METABOLIC S LA S LA PANEL HEMOGLOBI 32719 [facility]ILY FAMILY N 1 CARE CARE GLYCOSYLA ASSOCIATE ASSOCIATE ASHA A1C S S CULTURE 87144 COMBINED COMBINED BACTERIAL 1 PHYSICIAN PHYSICIAN S LA S LA QUANTTATI VE COLONY COUNT URINE GLUCOSE 53639 [facility] SOLIS POST 0 CARE G GLUCOSE ASSOCIATE DOSE S BLOOD 84166 FAMILY SOLISBrianna COUNT 0 CARE G COMPLETE ASSOCIATE AUTO&AUTO S DIFRNTL WBC BLOOD 11381 [facility]AL COUNT 0 [facility] COMPLETE INC INC AUTO&AUTO DIFRNTL WBC RADEX ABD 71201 [facility] COMPL 0 [facility] AQT ABD INC INC W/S/E/D VIEWS 1 VIEW CH URNLS DIP 79442 [facility] ANDRESON [facility] STICK/TAB INC INC LET REAGENT AUTO MICROSCOP Y COMPREHEN 03823 [facility]OVAL SIVE 0 [facility] [address] LORI SANDOVAL AMYLASE 0 [place] [address] [facility] S[facility]OVAL LIPASE 0 [facility] INC INC COMPREHEN 78974 COMBINED COMBINED SIVE 0 PHYSICIAN PHYSICIAN METABOLIC S LAB S LAB PANEL NEEDLE A4215 [facility] STERILE 0 PHARMACY PHARMACY ANY SIZE 3938 3938 EACH ALBUMIN 38151 FAMILY CELIS, URINE 0 CARE Gretta PATEL MICROALBU ASSOCIATE MIN S SEMIQUANT ITATIVE GLUCOSE 92698 FAMILY LAZOT, POST 0 CARE Gretta PATEL GLUCOSE ASSOCIATE DOSE S HEMOGLOBI 58556 FAMILY LAZOT, N 0 CARE Gretta PATEL GLYCOSYLA ASSOCIATE ASHA A1C S CREATININ 85755 FAMILY LAZOT, E OTHER 0 CARE [place] [address] COMBINED COMBINED THYROID 0 PHYSICIAN PHYSICIAN STIMULATI S LAB S LAB NG HORMONE TSH HEMOGLOBI 52291 Brianna LUNA N 9 CARE G GLYCOSYLA ASSOCIATE ASHA A1C S BLOOD 73480 Brianna SOLIS COUNT 9 CARE G COMPLETE ASSOCIATE AUTO&AUTO S DIFRNTL WBC COMPREHEN 16354 COMBINED COMBINED SIVE 9 PHYSICIAN PHYSICIAN METABOLIC S LAB S LAB PANEL NONINVASI 11171 Brianna SOLIS VE 9 CARE G EAR/PULSE ASSOCIATE OXIMETRY S SINGLE DETER HEMOGLOBI 96535 COMBINED COMBINED N 9 PHYSICIAN PHYSICIAN GLYCOSYLA S LAB S LAB ASHA A1C BASIC 37094 COMBINED COMBINED METABOLIC 9 PHYSICIAN PHYSICIAN PANEL S LAB S LAB CALCIUM TOTAL COLLECTIO 21866 FAMILY SOLIS Brianna N VENOUS 9 CARE G BLOOD ASSOCIATE VENIPUNCT S URE CREATININ 80408 Brianna SOLIS E OTHER 8 CARE G SOURCE ASSOCIATE S ALBUMIN 08782 Brianna SOLIS URINE 8 CARE G MICROALBU ASSOCIATE MIN S SEMIQUANT ITATIVE COMPREHEN 02403 COMBINED COMBINED SIVE 8 PHYSICIAN PHYSICIAN METABOLIC S LAB S LAB PANEL BLOOD 96435 Brianna SOLIS COUNT 8 CARE G COMPLETE ASSOCIATE AUTO&AUTO S DIFRNTL WBC HEMOGLOBI 32572 COMBINED COMBINED N 8 PHYSICIAN PHYSICIAN GLYCOSYLA S LAB S LAB ASHA A1C Encounters Encounter Start End Date Code Location Performer Type Date EMERGENCY 33262 VALENTINO CELLAROSI 3 [facility] HIGH/URGE NT SEVERITY [facility] [place] [address] 3 N OUTPATIEN COMM[facility]ITY T HOSPITA OFFICE 88034 FAMILY SOLIS Brianna OUTPATIEN 1 1 CARE T VISIT ASSOCIATE 15 S MINUTES OFFICE 85753 FAMILY IRMA Reed OUTPATIEN 1 1 CARE T VISIT ASSOCIATE 15 S MINUTES OFFICE 59525 FAMILY SOLISBrianna OUTPATIEN 0 0 CARE G T VISIT ASSOCIATE 15 S MINUTES EMERGENCY 95608 [facility] 0 0 [facility]ISIT LOW/MODER SEVERITY [facility] - [facility] T OFFICE 94662 FAMILY RODRIGUEZTITI JASSO 0 0 CARE R JORGE T VISIT ASSOCIATE 25 S MINUTES OFFICE 21726 TITI CELIS 9 9 CARE R JORGE T VISIT ASSOCIATE 25 S MINUTES OFFICE 81269 Brianna LUNA 9 9 CARE G T VISIT ASSOCIATE 15 S MINUTES OFFICE 52342 Brianna LUNA 9 9 CARE G T VISIT ASSOCIATE 15 S MINUTES OFFICE 75426 Brianna LUNA 9 9 CARE G T VISIT ASSOCIATE 25 S MINUTES OFFICE 67981 Brianna LUNA 9 9 CARE G T VISIT ASSOCIATE 25 S MINUTES OFFICE [id number] Brianna LUNA 9 9 CARE G T VISIT ASSOCIATE 25 S MINUTES OFFICE 60656 Brianna LUNA 9 9 CARE G T VISIT ASSOCIATE 25 S MINUTES OFFICE 81806 Brianna LUNA 8 8 CARE G T VISIT ASSOCIATE 25 S MINUTES OFFICE 04569 Brianna LUNA 8 8 CARE G T VISIT ASSOCIATE 25 S MINUTES
--- OUTSIDE RECORDS SUMMARY | 2016-11-06 10:38 | External Medical Summary Rpt ---
Author Author , DEAN MORAN Address Unknown Phone [email or web address] Care Team Providers Care Recreational Specialist Name Role Phone CELLAROSI - YORBA Unavailable Unavailable PAT, CELLAROSI - YORBA PAT [facility] Unavailable Unavailable [facility] Unavailable Unavailable [facility] Unavailable Unavailable LAB, [facility] IRMA Reed, IRMA Reed Unavailable Unavailable Brianna SOLIS, IRMA, Unavailable Unavailable ADRIEL HERNANDEZ, Unavailable Unavailable [facility] Unavailable Unavailable [facility], [facility] Unavailable Unavailable HOSPITA, [facility] Unavailable [facility]available [facility], [facility] Unavailable Unavailable SERVICES, [facility] Gretta CELIS, Unavailable Unavailable Gretta CELIS [id number], Unavailable Unavailable [id number] Unavailable Unavailable [id number] [address] [id number], [facility] [id number] # [id number] [facility] Unavailable Unavailable 3938, [facility]38 Purpose Continuity of Care Document - 07-16-2007 through 2016 Problems Code Diagnosis DOS Provider Status 55217 DIAB W/O 04-08-2013 COMBINED COMP TYPE I PHYSICIANS [JUV] NOT LA STATED UNCNTRL 79919 DIAB W/O 12-22-2012 [facility] [place] COMP TYPE COMMUNITY II/UNS NOT HOSPITA STATED UNCNTRL 3899 UNSPECIFIED 12-22-2012 [facility] [place] [facility]ARING [facility] LOSS [facility]OS[facility] 4019 UNSPECIFIED 12-22-2012 [facility] [place] ESSENTIAL [facility] HYPERTENSIO HOSPITA N 95544 UNSPECIFIED 12-22-2012 [facility] [place] CELLULITIS COMM[facility]ITY AND HOSPITA ABSCESS OF TOE 6571 CELLULITIS 12-22-2012 [facility] AND [facility]SC[facility] EMERGENCY OF FOOT SERVICES EXCEPT TOES 2724 OTHER AND 09-14-2010 [facility]PECIF[facility] HYPERLIPIDE CHEVY 7862 COUGH 06-03-2009 [facility] 01958 OTHER 05-22-2009 [facility] INTESTINE 71427 UNSPECIFIED 05-22-2009 [facility]YCHIATRIC CONSTIPATIO [facility] N 47187 ABDOMINAL 05-22-2009 [place] PAIN, MEDICAL UNSPECIFIED [facility] 76600 DIAB W/O 02-02-2009 [facility] MENTION [facility] COMP TYPE II/UNS TYPE UNCNTRL 13602 ASTHMA, 11-24-2008 [facility] UNSPECIFIED [facility] , UNSPECIFIED STATUS 60416 PAIN IN 11-24-2008 [facility] JOINT, [facility]OC[facility]ATES [...] -3 -3 .0 TE 94 OP ti KS 80 0- 0- 00 32 ER ve [...] 20 8- 3- [address] 00 20 20 AI N 80 11 11 D SHIMON HC 1 PH HN L AR G 50 MA 0 CY MG 03 TA 93 BL 8 ET # 03 93 LI 00 05 06 4 30 30 RI 88 CO Ac SI 59 -2 -2 .0 TE 45 OP ti NO 10 4- 3- 00 52 ER ve KS 86 20 20 AI IL 20 11 11 D SHIMON -H [address] AR G Z MA 20 CY -2 5 03 MG 93 8 TA # B 03 93 KS 00 06 06 6. 30 RI 88 [...] -2 -0 .0 TE [address] 93 8- 3- 00 26 ER ve [...] -0 -0 .0 TE 75 OP ti KS 80 3- 2- 00 48 ER ve [...] 10 4- 4- 00 52 ER ve KS 86 20 20 AI IL 20 11 11 D SHIMON -H [address] AR G Z MA 20 CY -2 5 03 MG 93 8 TA # B 03 93 NA 00 08 05 3 60 30 RI 84 CO Ac KS 09 -2 -0 .0 TE 71 OP [...] -0 -0 .0 TE 75 OP ti KS 80 3- 4- 00 48 ER ve [...] 20 8- 0- [address] 00 20 20 AI N 80 11 [...] -0 -0 .0 TE 75 OP ti KS 80 3- 1- 00 48 ER ve [...] -2 -2 .0 TE [address] 93 8- 8- 00 26 ER ve [...] 20 8- 8- [address] 00 20 20 AI N 80 11 [...] CY 03 93 8 # 03 93 KS 00 03 03 6. 30 RI 87 [...] -1 -2 .0 TE [address] 96 0- 6- 00 57 ER ve [...] BA ZA 10 10 10 D BA KS 1 PH TU IN AR ND E [...] M #3 TA 93 BL 8 ET KS 00 02 02 00 6. 30 RI [...] -0 -1 .0 TE 32 OP ti KS 80 7- 1- 00 00 ER ve [...] -0 -1 .0 TE 32 OP ti KS 80 7- 4- 00 00 ER ve [...] -0 -1 .0 TE 32 OP ti KS 80 7- 7- 00 00 ER ve [...] 31 8- 7- [address] 04 20 20 AI N 80 09 09 D SHIMON HC 1 PH HN L AR G 50 M 0 #3 MG 93 8 TA BL ET KS 00 01 12 01 6. 30 RI [...] -0 -1 .0 TE 32 OP ti KS 80 7- 9- 00 00 ER ve [...] 31 5- 9- [address] 04 20 20 AI N 80 08 [...] -0 -2 .0 TE 32 OP ti KS 80 7- 2- 00 00 ER ve [...] 50 2- 2- [address] 19 20 20 AI N 20 09 [...] -0 -2 .0 TE 92 OP ti KS 80 9- 4- 00 19 ER ve [...] 31 5- 4- [address] 04 20 20 AI N 80 08 [...] -0 -2 .0 TE 92 OP ti KS 80 9- 7- 00 19 ER ve [...] 00 60 30 RI 79 CO Ac KS 09 -0 -1 .0 TE 41 OP [...] 31 5- 3- [address] 04 20 20 AI N 80 08 [...] -0 -3 .0 TE 92 OP ti KS 80 9- 0- 00 19 ER ve [...] -0 -1 .0 TE 92 OP ti KS 80 9- 8- 00 19 ER ve [...] -0 -2 .0 TE 92 OP ti KS 80 9- 1- 00 19 ER ve [...] 01 60 30 RI 75 CO Ac KS 09 -2 -2 .0 TE 18 OP ti OX 30 9- 3- 00 18 ER ve EN 14 20 20 AI 90 08 09 D SHIMON 50 1 PH HN 0 AR G MG M #3 TA 93 BL 8 ET ME 00 04 04 00 30 30 RI 77 CO Ac TO 37 -0 -2 .0 TE 92 OP ti KS 80 9- 3- 00 19 ER ve [...] -1 -2 .0 TE 78 OP ti KS 80 8- 6- 00 13 ER ve [...] -1 -2 .0 TE 78 OP ti KS 80 8- 6- 00 13 ER ve [...] 93 .5 8 -2 5 MG TB KS 00 01 01 00 6. 30 RI [...] -1 -1 .0 TE 78 OP ti KS 80 8- 5- 00 13 ER ve [...] -1 -1 .0 TE 78 OP ti KS 80 8- 8- 00 13 ER ve [...] -1 -2 .0 TE 78 OP ti KS 80 8- 0- 00 13 ER ve [...] -1 -2 .0 TE 78 OP ti KS 80 8- 3- 00 13 ER ve [...] 00 60 30 RI 75 CO Ac KS 09 -2 -0 .0 TE 18 OP [...] -1 -2 .0 TE 78 OP ti KS 80 8- 6- 00 13 ER ve [...] -1 -2 .0 TE 56 OP ti KS 80 6- 8- 00 58 ER ve [...] M TA #3 BL 93 ET 8 KS 00 07 08 02 6. 21 RI [...] -1 -0 .0 TE 18 OP ti KS 80 7- 1- 00 32 ER ve [...] 5 93 MG 8 TA BL ET KS 00 07 07 01 6. 21 RI [...] 08 D SHIMON E 9 PH HN KS AR G OP M #3 50 93 [...] -1 -0 .0 TE 11 OP ti KS 80 8- 3- 00 10 ER ve [...] -1 -2 .0 TE 11 t ti KS 80 8- 2- 00 10 Av ve [...] -1 -2 .0 TE 11 t ti KS 80 8- 4- 00 10 Av ve [...] -1 -1 .0 TE 11 t ti KS 80 8- 7- 00 10 Av ve [...] -1 -2 .0 TE 11 t ti KS 80 8- 6- 00 10 Av ve [...] -1 -2 .0 TE 11 t ti KS 80 8- 5- 00 10 Av ve [...] Procedure DOS Code Location Performer Comment BASIC 65349 COMBINED COMBINED METABOLIC 3 PHYSICIAN PHYSICIAN PANEL S LA S LA CALCIUM TOTAL CUL BACT 09581 [facility] XCPT 3 N N URINE [facility] BLOOD/STO HOSPITA HOSPITA OL AEROBIC ISOL INJECTION J2001 [facility] 3 N N LIDOCAINE [facility] HCL HOSPITA HOSPITA INTRAVENO US INFUS 10 MG RADIOLOGI 92049 [facility] C 3 N N EXAMINATI [facility] ON FOOT 2 HOSPITA HOSPITA VIEWS GLUC BLD 10969 [facility] GLUC MNTR 3 N N DEV [facility] CLEARED HOSPITA HOSPITA FDA SPEC HOME USE SUSCEPTIB 99339 [facility] LTY STDY 3 N N ANTIMICRB [facility] IAL HOSPITA HOSPITA MICRO/AGA R DILUTJ INCISION 86709 [facility] CELLAR[facility]I & 3 EMERGENCY - [facility] PAT ABSCESS SIMPLE/SI NGLE CUL BACT 20757 [facility] AEROBIC 3 N N ADDL [facility] METHS HOSPITA HOSPITA DEFINITIV E EA ISOL COMPREHEN 24437 COMBINED COMBINED SIVE 3 PHYSICIAN PHYSICIAN METABOLIC S LA S LA PANEL HEMOGLOBI 05602 FAMILY FAMILY N 1 CARE CARE GLYCOSYLA ASSOCIATE ASSOCIATE ASHA A1C S S COMPREHEN 41786 COMBINED COMBINED SIVE 1 PHYSICIAN PHYSICIAN METABOLIC S LA S LA PANEL HEMOGLOBI 03171 [facility] FAMILY N 1 CARE CARE GLYCOSYLA ASSOCIATE ASSOCIATE ASHA A1C S S CULTURE 46102 COMBINED COMBINED BACTERIAL 1 PHYSICIAN PHYSICIAN S LA S LA QUANTTATI VE COLONY COUNT URINE GLUCOSE 69105 Brianna SOLIS POST 0 CARE G GLUCOSE ASSOCIATE DOSE S BLOOD 89429 FAMILY SOLISBrianna COUNT 0 CARE G COMPLETE ASSOCIATE AUTO&AUTO S DIFRNTL WBC BLOOD 43033 [facility] COMPLETE INC INC AUTO&AUTO DIFRNTL WBC RADEX ABD 65231 [facility] COMPL 0 [facility] AQT ABD INC INC W/S/E/D VIEWS 1 VIEW CH URNLS DIP 73386 [facility] ANDRESON [facility] STICK/TAB INC INC LET REAGENT AUTO MICROSCOP Y COMPREHEN 20505 [facility] SIVE 0 [facility] [place] [address] [facility] AMYLASE 0 [place] [address] [facility] LIPASE 0 [facility] INC INC COMPREHEN 46244 COMBINED COMBINED SIVE 0 PHYSICIAN PHYSICIAN METABOLIC S LAB S LAB PANEL NEEDLE A4215 [facility] PHARMACY ANY SIZE 3938 3938 EACH ALBUMIN 97331 FAMILY CELIS, URINE 0 CARE Gretta PATEL MICROALBU ASSOCIATE MIN S SEMIQUANT ITATIVE GLUCOSE 74819 FAMILY LAZOT, POST 0 CARE Gretta PATEL GLUCOSE ASSOCIATE DOSE S HEMOGLOBI 58005 FAMILY LAZOT, N 0 CARE Gretta PATEL GLYCOSYLA ASSOCIATE ASHA A1C S CREATININ 37662 FAMILY LAZOT, E OTHER 0 CARE [place] [address] COMBINED COMBINED THYROID 0 PHYSICIAN PHYSICIAN STIMULATI S LAB S LAB NG HORMONE TSH HEMOGLOBI 07052 Brianna LUNA N 9 CARE G GLYCOSYLA ASSOCIATE ASHA A1C S BLOOD 65913 Brianna SOLIS COUNT 9 CARE G COMPLETE ASSOCIATE AUTO&AUTO S DIFRNTL WBC COMPREHEN 62286 COMBINED COMBINED SIVE 9 PHYSICIAN PHYSICIAN METABOLIC S LAB S LAB PANEL NONINVASI 18397 Brianna SOLIS VE 9 CARE G EAR/PULSE ASSOCIATE OXIMETRY S SINGLE DETER HEMOGLOBI 93114 COMBINED COMBINED N 9 PHYSICIAN PHYSICIAN GLYCOSYLA S LAB S LAB ASHA A1C BASIC 81505 COMBINED COMBINED METABOLIC 9 PHYSICIAN PHYSICIAN PANEL S LAB S LAB CALCIUM TOTAL COLLECTIO 78618 FAMILY SOLIS Brianna N VENOUS 9 CARE G BLOOD ASSOCIATE VENIPUNCT S URE CREATININ 65924 Brianna SOLIS E OTHER 8 CARE G SOURCE ASSOCIATE S ALBUMIN 97709 Brianna SOLIS URINE 8 CARE G MICROALBU ASSOCIATE MIN S SEMIQUANT ITATIVE COMPREHEN 12836 COMBINED COMBINED SIVE 8 PHYSICIAN PHYSICIAN METABOLIC S LAB S LAB PANEL BLOOD 33501 Brianna SOLIS COUNT 8 CARE G COMPLETE ASSOCIATE AUTO&AUTO S DIFRNTL WBC HEMOGLOBI 77143 COMBINED COMBINED N 8 PHYSICIAN PHYSICIAN GLYCOSYLA S LAB S LAB ASHA A1C Encounters Encounter Start End Date Code Location Performer Type Date EMERGENCY 34545 [facility] PAT T VISIT HIGH/URGE NT SEVERITY [facility] [place] [address] 3 N OUTPATIEN COMMUNITY T HOSPITA OFFICE 27089 FAMILY SOLIS Brianna OUTPATIEN 1 1 CARE T VISIT ASSOCIATE 15 S MINUTES OFFICE 04525 FAMILY IRMA Reed OUTPATIEN 1 1 CARE T VISIT ASSOCIATE 15 S MINUTES OFFICE 26982 FAMILY SOLISBrianna OUTPATIEN 0 0 CARE G T VISIT ASSOCIATE 15 S MINUTES EMERGENCY 71496 [facility] 0 [facility]PART[facility] T VISIT LOW/MODER [facility]VERITY [facility] - 0 0 [facility] OUTPATIEN INC T OFFICE 36880 FAMILY RODRIGUEZTITI JASSO 0 0 CARE R JORGE T VISIT ASSOCIATE 25 S MINUTES OFFICE 37185 [facility] CELIS 9 9 CARE R JORGE T VISIT ASSOCIATE 25 S MINUTES OFFICE 36652 Brianna LUNA 9 9 CARE G T VISIT ASSOCIATE 15 S MINUTES OFFICE 56804 Brianna LUNA 9 9 CARE G T VISIT ASSOCIATE 15 S MINUTES OFFICE 62896 Brianna LUNA 9 9 CARE G T VISIT ASSOCIATE 25 S MINUTES OFFICE 44423 Brianna LUNA 9 9 CARE G T VISIT ASSOCIATE 25 S MINUTES OFFICE 88331 Brianna LUNA 9 9 CARE G T VISIT ASSOCIATE 25 S MINUTES OFFICE 32968 Brianna LUNA 9 9 CARE G T VISIT ASSOCIATE 25 S MINUTES OFFICE 66120 Brianna LUNA 8 8 CARE G T VISIT ASSOCIATE 25 S MINUTES OFFICE 47860 Brianna LUNA 8 8 CARE G T VISIT ASSOCIATE 25 S MINUTES
--- OUTSIDE RECORDS SUMMARY | 2016-11-06 10:40 | External Medical Summary Rpt ---
Author Author DEAN Shannan, DEAN [employer] Organization [employer] Address Unknown Phone Unavailable Results Glucose [Mass/volume] in Capillary blood by Glucometer Observa Value Referen Units Interpr Notes Date tion ce etation Range Glucose 70 - 110 mg/dl High No Oct 17 [Mass/vol informati 2016 8:05 ume] in on in AM Capillary source blood by data Glucomete r Amylase [Enzymatic activity/volume] in Serum or Plasma Observa Value Referen Units Interpr Notes Date tion ce etation Range Amylase 25 - 115 U/L Normal No Oct 17 [Enzymati informati 2016 7:50 c on in AM activity/ source volume] data in Serum or Plasma Comprehensive metabolic 2000 panel in Serum or Plasma Observa Value Referen Units Interpr Notes Date tion ce etation Range Albumin/G 1.1 - 1.8 No Low No Oct 17 lobulin informati informati 2016 7:50 [Mass on in on in AM ratio] in source source Serum or data data Plasma Albumin 3.4 - 5.0 gm/dL Normal No Oct 17 [Mass/vol informati 2016 7:50 ume] in on in AM Serum or source Plasma data Alkaline 46 - 116 U/L High No Oct 17 phosphata informati 2017 7:50 se on in AM [Enzymati source c data activity/ volume] in Serum or Plasma Bilirubin 0.2 - 1.0 mg/dL Normal No Oct 17 .total informati 2017 7:50 [Mass/vol on in AM ume] in source Serum or data Plasma Urea 7 - 18 mg/dL High No Oct 17 nitrogen informati 2017 7:50 [Mass/vol on in AM ume] in source Serum or data Plasma Calcium 8.5 - mg/dL Normal No Oct 17 [Mass/vol 10.1 informati 2017 7:50 ume] in on in AM Serum or source Plasma data Chloride 98 - 107 mmoL/L Normal No Oct 17 [Moles/vo informati 2017 7:50 lume] in on in AM Serum or source Plasma data Carbon 21.0 - mmoL/L Normal No Oct 17 dioxide, 32.0 informati 2016 7:50 total on in AM [Moles/vo source lume] in data Serum or Plasma Creatinin 0.55 - mg/dL Normal No Oct 17 e 1.02 informati 2016 7:50 [Mass/vol on in AM ume] in source Serum or data Plasma Creatinin 50 - 200 ML/MIN Normal No Oct 17 e renal informati 2016 7:50 clearance on in AM source predicted data by Cockcroft -Gault formula Estimated 59- ML/MIN Low REFERENCE Oct 17 RANGE: 2016 7:50 glomerula >60 AM r ML/MIN/1. filtratio 73 SQUARE n rate METERSIf (GF this patient is -A merican, then multiply theresult by 1.210. Globulin 1.3 - 3.2 gm/dL High No Oct 17 [Mass/vol informati 2016 7:50 ume] in on in AM Serum source data Glucose 74 - 106 mg/dL High Oct 17 [Mass/vol informati 2016 7:50 ume] in on in AM Serum or source Plasma data Potassium 3.5 - 5.1 mmoL/L Normal No Oct 17 informati 2016 7:50 [Moles/vo on in AM lume] in source Serum or data Plasma Sodium 136 - 145 mmoL/L Normal No Oct 17 [Moles/vo informati 2016 7:50 lume] in on in AM Serum or source Plasma data Aspartate 15 - 37 U/L Low No Oct 17 informati 2016 7:50 aminotran on in AM sferase source [Enzymati data c activity/ volume] in Serum or Plasma Alanine 12 - 78 U/L Normal No Oct 17 aminotran informati 2016 7:50 sferase on in AM [Enzymati source c data activity/ volume] in Serum or Plasma Protein 6.4 - 8.2 gm/dL Normal No Oct 17 [Mass/vol informati 2016 7:50 ume] in on in AM Serum or source Plasma data Lipase [Enzymatic activity/volume] in Serum or Plasma Observa Value Referen Units Interpr Notes Date tion ce etation Range Lipase 73 - 393 U/L Normal No Oct 17 [Enzymati informati 2016 7:50 c on in AM activity/ source volume] data in Serum or Plasma CBC W Auto Differential panel in Blood Observa Value Referen Units Interpr Notes Date tion ce etation Range Basophils 0 - 0.2 K/MM3 Normal No Oct 17 informati 2016 7:50 [#/volume on in AM ] in source Blood by data Automated count Basophils 0.1 - 2.0 % Normal No Oct 17 /100 informati 2017 7:50 leukocyte on in AM s in source Blood by data Automated count Eosinophi 0.0 - 0.4 K/mm3 Normal No Oct 17 ls informati 2016 7:50 [#/volume on in AM ] in source Blood by data Automated count Eosinophi 0.1 - % Normal No Oct 17 ls/100 12.0 informati 2016 7:50 leukocyte on in AM s in source Blood by data Automated count Granulocy 1.8 - 7.8 K/mm3 Normal No Oct 17 catina informati 2016 7:50 [#/volume on in AM ] in source Blood by data Automated count Granulocy 37.0 - % Normal No Oct 17 catina/100 80.0 informati 2016 7:50 leukocyte on in AM s in source Blood by data Automated count Hematocri 37.0 - % Normal No Oct 17 t [Volume 47.0 informati 2016 7:50 on in AM Fraction] source of Blood data Hemoglobi 12.2 - g/dL Normal No Oct 17 n 16.2 informati 2016 7:50 [Mass/vol on in AM ume] in source Blood data Lymphocyt 0.7 - 4.5 K/mm3 Normal No Oct 17 es informati 2016 7:50 [#/volume on in AM ] in source Unspecifi data ed specimen by Automated count Lymphocyt 10 - 50.0 % Normal No Oct 17 es informati 2016 7:50 [#/volume on in AM ] in source Unspecifi data ed specimen by Automated count Erythrocy 27 - 31.2 pg Normal No Oct 17 te mean informati 2016 7:50 corpuscul on in AM ar source hemoglobi data n [Entitic mass] Erythrocy 31.8 - g/dl Normal No Oct 17 te mean 35.4 informati 2017 7:50 corpuscul on in AM ar source hemoglobi data n concentra tion [Mass/vol ume] by Automated count Erythrocy 82.2 - fl Normal No Oct 17 te mean 97.8 informati 2016 7:50 corpuscul on in AM ar volume source [Entitic data volume] by Automated count Monocytes 0.1 - 1.0 K/mm3 Normal No Oct 17 informati 2016 7:50 [#/volume on in AM ] in source Blood by data Automated count Monocytes 1.7 - 9.3 % Normal No Oct 17 /100 informati 2017 7:50 leukocyte on in AM s in source Blood by data Automated count Platelet 7.4 - fl Normal Oct 17 mean 10.4 informati 2016 7:50 volume on in AM [Entitic source volume] data in Blood by Automated count Platelets 142 - 424 K/mm3 Normal No Oct 17 informati 2016 7:50 [#/volume on in AM ] in source Blood data Erythrocy 4.2 - 5.4 M/mm3 Normal No Oct 17 catina informati 2016 7:50 [#/volume on in AM ] in source Amniotic data fluid Erythrocy 11.5 - % Normal No Oct 17 te 17.5 informati 2016 7:50 distribut on in AM ion width source [Entitic data volume] by Automated count Leukocyte 4.8 - K/MM3 Normal No Oct 17 s 10.8 informati 2016 7:50 [#/volume on in AM ] in source Blood data
--- OUTSIDE RECORDS SUMMARY | 2016-11-06 10:40 | External Medical Summary Rpt ---
Demographics Preferred Language Polish Marital Status Unknown Sabianist Affiliation Unknown Race Unknown Ethnic Group Unknown Author Author DEAN Address Unknown Phone Immunization No patient found.
--- OUTSIDE RECORDS SUMMARY | 2016-11-06 10:40 | External Medical Summary Rpt ---
Demographics Preferred Language Kiswahili Marital Status Unknown Hindu Affiliation Unknown Race Unknown Ethnic Group Unknown Author Author DEAN Address Unknown Phone Immunization No patient found.
--- NOTE | 2016-11-06 10:52 | Urgent Treatment Center Report ---
History of Present Issue Date/Time Seen by Provider 11/06/16 1040 Visit Reason Pt arrived:Wheelchair Presenting Problem:PT WITH RECENT PNEUMONIA DX (2 WEEKS AGO) CONTINUES TO HAVE PRODUCTIVE COUGH. STATES SHE NOTICED THIS MORNING IT CONTAINED SOME BLOOD STREAKS. PT IS ON LOVENOX DAILY. T Location if Accident: Onset of symptoms date/time:11/05/16 or onset unknown for: Have you (or family members/close friends) recently traveled outside the [place]? N If Yes, where/when: Have you had exposure to infectious disease within the past month? TB? Other? Specify: Source patient, RN notes reviewed, family Exam Limitations physical impairment (Pt is deaf) Comment Patient states she has coughed up blood streaked sputum a few times since last night. She was diagnosed with pneumonia two weeks ago. She was treated with Cefdinir. She was diagnosed with PE, transferred to , and is on Lovenox daily. They cautioned her about bleeding while on the Lovenox and she was concerned. Denies fever. Complains of some back pain as well. She does not smoke. ALLERGIES Coded Allergies: No Known Allergies (09/06/15) Home Medications Reported Medications Spironolactone (Spironolactone) 25 MG PO DAILY Amlodipine Besylate (Amlodipine) 5 MG PO DAILY Insulin Detemir (Levemir) 26 UNITS SC DAILY Glyburide (Glyburide 5MG) 5 MG PO BIDD Metformin HCL (Metformin) 500 MG PO BID Ferrous Sulfate (Ferrous Sulfate 325MG) 325 MG PO DAILY ALBUTEROL (Proventil Hfa Inhaler) 1-2 PUFF IH Q4-6H PRN #1 CAN Atorvastatin Calcium 80 MG PO QHS #30 Aspirin (Aspirin EC) 81 MG PO DAILY Omeprazole (Omeprazole 20MG) 20 MG PO DAILY Carvedilol (Carvedilol 25MG) 25 MG PO BID Furosemide 40 MG PO DAILY #30 Enoxaparin Sodium 100 MG IJ DAILY #60 History Medical History General CAD? Yes Angina: Yes DC: Yes Hypertension? Yes Hyperlipidemia? Yes CHF? No DVT? No PE? No COPD? No Asthma? Yes Anemia? Yes GERD? Yes Gastric ulcers? No GI Bleed? No Hernia? No Thyroid Problems? No Hypothyroidism? No CVA? No Seizures? No Diabetes? Yes Insulin Dependent: Yes Insulin Pump: No Home FSBS? Yes Renal Insuffiency? No UTI? No Stones? No BPH? No GB Disease: No Nephritic Syndrome? No Asplenia? No Hepatitis? No Sickle Cell Disease? No Arthritis? Yes Migraines? No Cataracts? No Glaucoma? No MRSA? No HIV? No TB? No Anxiety? Yes Depression? Yes Cancer? No More? No Additional hx: 1. Deaf 2. 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 N/A Family History Family HX Diabetes Yes CAD Yes Hypertension Yes Hyperlipidemia Yes Cancer No TB No Social History Smoking Hx Smoker: Never Smoker Tobacco: No Type N/A Packs/day N/A Are you/the child exposed to second-hand smoke: No Alcohol Alcohol: No Review of Systems All Other Systems Reviewed and Negative Respiratory see HPI, cough Physical Exam Vital Signs Vital Signs Date Time Temp Pulse Resp B/P Pulse O2 O2 Flow FiO2 Ox Delivery Rate 11/06 1021 98.1 61 18 151/71 98 11/06 1018 98.1 61 18 151/71 98 General Appearance normal appearance, no apparent distress Eye Exam - bilateral eye normal exam, bilateral eye PERRL, bilateral eye EOMI Ear, Nose, Throat hearing grossly normal, normal ENT inspection Respiratory Status No: respiratory distress, trachea midline, chest symmetrical. Lung Sounds bilateral: rhonchi, wheezing. Cardiovascular normal exam, regular rate/rhythm, no peripheral edema, no gallop, no JVD, no murmur, no rub Extremities non-tender, normal range of motion, normal inspection, normal capillary refill Neurologic alert, normal exam, oriented x 3 Mental status normal mood/affect Medical Decision Making LABS/Meds/Orders Pt receiving controlled substance in ED? No Results/Orders Orders Procedure Date/time Status CHEST(2 VIEWS-NOT PORTABLE) 11/06 1038 Active XRAY/CT/US XRAY/CT/US XRAY chest XR interpretation by reviewed by me Xray Results unchanged from 09/20/16 with RUL infiltrate Departure Departure Time of Disposition 1140 Disposition DC Home or Self Care(routine) Clinical Impression Primary Impression: Right upper lobe pneumonia Qualifiers: Pneumonia type: due to unspecified organism Qualified Code: J18.1 - Lobar pneumonia, unspecified organism Condition STABLE Referrals Brianna Turner MD Patient Instructions DI for Pneumonia -- Adult Discharge Counseling Counseled pt/family regarding diagnosis, test results, medications/RX, home care, follow up needs Comment F/U with Dr Turner tomorrow to discuss CXR and CTA chest results Prescriptions Current Visit Scripts Levofloxacin (Levaquin 500MG) 500 MG PO DAILY #7 TAB at 2319
[2016-11-06] MEDS ORDERED: LEVAQUIN500 MG PO (11:43)
[2016-11-06 11:44] VITALS: BP 151/71
--- NOTE | 2016-11-06 13:14 | RADIOLOGY REPORT PS360 ---
CHEST(2 VIEWS-NOT PORTABLE) COMPARISON: PA and lateral chest 09/20/2016 HISTORY: Cough TECHNIQUE: PA and lateral chest FINDINGS: This is a somewhat poor inspiration. There are ill-defined opacities in the right upper lobe suggesting either persistent or recurrent pneumonia similar in appearance the previous study 20 September. Is primarily in the posterior segment right upper lobe. The right lower lung field and left lung are clear. There is mild generalized cardio megaly is no evidence of failure. There is a pacemaker with dual chamber electrodes both in good position. There are multilevel degenerative changes in the lower thoracic and upper lumbar spine IMPRESSION: Ill-defined right upper lobe bronchopneumonia similar in appearance the previous study and may possibly representing a combination of post inflammatory scarring and recurrent pneumonia.
[2016-11-13] MEDS ORDERED: BENTYL GENERIC10 MG PO (10:59)
[2016-11-13] MEDS ORDERED: LOSARTAN POTASS50 MG PO (11:00)
== END 2016-11-06 11:48 | disposition home or self-care (01) ==
LOC: UTC 10:10 → ER 10:10 → UTC 10:25
DX: J18.1 Lobar pneumonia, unspecified organism (principal); I10 Essential (primary) hypertension; I25.10 Atherosclerotic heart disease of native coronary artery without angina pectoris; K21.9 Gastro-esophageal reflux disease without esophagitis; E11.9 Type 2 diabetes mellitus without complications; Z79.4 Long term (current) use of insulin